=== PATIENT | female | born 1930 | race Caucasian/White ===

== ENCOUNTER 2017-03-14 11:56 | Inpatient (IN) | payer MEDICARE ==
[~2017-03-14] VITALS: Ht 157.5 cm; Wt 60.4 kg
[~2017-03-14 11:56] MED LIST: ASPI81 PO; LEVO100T60 PO; PRIN20TA2 PO; SERT25TA83 PO; TAB-TAB PO; VITA400C70 PO
[2017-03-14 11:58] VITALS: BP 126/71; PULSE 65; RESP 14; TEMP 98.2; O2SAT 98
--- NOTE | 2017-03-14 12:14 | PD ---
Physical Exam Date Seen by Provider: Mar 14, 2017 Time Seen by Provider: 12:12 Narrative 86 year old female here for evaluation of possible fall. Patient cannot remember when or whether she felt. She has been feeling dizzy and lightheaded with standing and sitting. Feeling nauseous and weak. Has pain to the back of the head with bruising. Fall not witnessed. Was seen at urgent care and given nausea meds on tuesday. No other complains. No belly pain. Per family she appears somewhat confused and lethargic. Was seen today by urgent care and sent here for eval. No pain anywhere else. Vitals stable at triage. Awaiting bed placement. Data Data Last Documented VS Vital Signs Date Time Temp Pulse Resp B/P (MAP) Pulse Ox O2 Delivery O2 Flow Rate FiO2 03/14/17 11:58 98.2 65 14 126/71 (89) 98 MDM Medical Record Reviewed: Yes Supervised Visit with DENICE: Casimiro Peña Mar 14, 2017 12:14
--- NOTE | 2017-03-14 13:02 | RADRPT ---
EXAM DATE/TIME: 03/14/2017 12:50 [facility] COMPARISON: No previous studies available for comparison. INDICATIONS : Syncopal episode MEDICAL HISTORY : None. SURGICAL HISTORY : None. ENCOUNTER: Initial ACUITY: 1 day PAIN SCORE: 4/10 LOCATION: Bilateral chest FINDINGS: Cardiomegaly and aortic calcification. Clear lungs. Right shoulder arthroplasty. Stent graft at the l evel of the abdominal aorta. Degenerative changes of the spine. CONCLUSION: No acute disease. Jerson Mayfield MD on March 14, 2017 at 13:00 Board Certified Radiologist. This report was verified electronically.
--- NOTE | 2017-03-14 13:05 | RADRPT ---
EXAM DATE/TIME: 03/14/2017 12:49 [facility] COMPARISON: No previous studies available for comparison. INDICATIONS : Fall, bruising on right side of head. RADIATION DOSE: 56.35 CTDIvol (mGy) MEDICAL HISTORY : Cardiovascular disease. Hypertension. Aneurysm, abdominal. SURGICAL HISTORY : Hysterectomy. ENCOUNTER: Initial ACUITY: 1 day PAIN SCALE: 4/10 LOCATION: Right cranial TECHNIQUE: Multiple contiguous axial images were obtained of the head. Using automated exposure control and adj ustment of the mA and/or kV according to patient size, radiation dose was kept as low as reasonably a chievable to obtain optimal diagnostic quality images. DICOM format image data is available electro nically for review and comparison. FINDINGS: Internal carotid artery and bilateral vertebral artery calcifications are noted. No fractures are see n. The examination demonstrates intraparenchymal hemorrhage in the bilateral inferior frontal regions as well as a hematoma with a small amount of surrounding edema in the left inferior frontal region m easuring 2.2 x 1.5 cm. There is slight mass effect on the frontal horn of the left lateral ventricle. A small amount of subarachnoid hemorrhage is suspected in the left frontal region on the 15. There a re no signs of acute infarction. There is diffuse atrophy. CONCLUSION: Intra-axial and extra-axial hemorrhage identified as above. Atrophy and atherosclerosis. Jerson Mayfield MD on March 14, 2017 at 13:02 Board Certified Radiologist. This report was verified electronically.
[2017-03-14 13:17] VITALS: BP 179/85; PULSE 73; RESP 16; TEMP 97.9; O2SAT 96
[2017-03-14] MEDS ORDERED: LEVO.1 PO (13:26)
[2017-03-14] MEDS ORDERED: LISI-515 PO (13:26)
[2017-03-14] MEDS ORDERED: ZOFR4TAB PO (13:26)
[2017-03-14] MEDS ORDERED: LIPI10TA PO (13:26)
[2017-03-14] MEDS ORDERED: SIMV5TAB3 PO (13:26)
[2017-03-14 13:39] LABS: AUTOMATED NEUTROPHIL # 5.7 TH/MM3 (1.8-7.7); BASOPHIL % 0.3 % (0.0-2.0); EOSINOPHIL % 0.1 % (0.0-4.0); HEMATOCRIT 40.4 % (35.0-46.0); HEMO FLAGS DIFF FINAL; LYMPH % 20.6 % (9.0-44.0); LYMPHOCYTE # 1.7 TH/MM3 (1.0-4.8); MEAN CELL VOLUME 97.1 FL (80.0-100.0); MEAN CORPUSCULAR HEMOGLOBIN 31.2 PG (27.0-34.0); MEAN CORPUSCULAR HGB CONC 32.1 % (32.0-36.0); MONO % 8.1 % (0.0-8.0); NEUT % 70.9 % (16.0-70.0); PLATELET COUNT 195 TH/MM3 (150-450); RED BLOOD COUNT 4.16 MIL/MM3 (4.00-5.30); RED CELL DISTRIBUTION WIDTH 14.7 % (11.6-17.2); WHITE BLOOD COUNT 8.1 TH/MM3 (4.0-11.0)
--- NOTE | 2017-03-14 13:50 | PD ---
HPI Chief Complaint: Fall Time Seen by Provider: 13:20 Travel History International Travel<30 days: No Contact w/Intl Traveler<30days: No Traveled to known affect area: No History of Present Illness HPI 86-year-old female came to the emergency room with history of head injury from a fall that patient does not recall. Patient has been weak and confused for past few days as per her friend who brought her in the emergency room. The friend took the patient to her primary care because this morning when she went to see her she noticed that patient had a large bump on the back of her head and some bruising behind her right ear. Once primary care saw the patient he recommended that she should be taken to the emergency room to get blood test and CAT scan. There were labs ordered by the PA out in triage. CT scan was done and read by the time I went to see the patient. It showed subdural and intraparenchymal hemorrhage. Patient surprisingly is quite awake and alert. She told me that she takes 1 baby aspirin every day. Vital signs are relatively stable. Patient is complaining of some headache on the back as well as some neck pain. As per the friend she has been confused lately. [facility] Past Medical History Narrative Medical List of her past medical, surgical, social and family history is reviewed from the nursing note. Arthritis: Yes (RA) Asthma: No Autoimmune Disease: No Blood Disorders: No Anxiety: Yes Depression: No Heart Rhythm Problems: No Cancer: No Cardiac Catheterization: Yes (AFTER CA, HAD PLASTY X1 VESSEL) Cardiovascular Problems: Yes (CA X 1) High Cholesterol: Yes Chemotherapy: No Chest Pain: Yes Congestive Heart Failure: No COPD: No Cerebrovascular Accident: No Coronary Artery Disease: Yes Diabetes: No Diminished Hearing: No Endocrine: Yes Gastrointestinal Disorders: Yes GERD: No Glaucoma: No Genitourinary: No Headaches: No Hepatitis: No Hiatal Hernia: No Hypertension: Yes Immune Disorder: Yes Implanted Vascular Access Dvce: Yes Kidney Stones: No Medical other: Yes (NEAR DROWNING 11/26) Musculoskeletal: Yes Neurologic: Yes Psychiatric: Yes Reproductive: No Respiratory: No Immunizations Current: Yes Migraines: No Myocardial Infarction: Yes Radiation Therapy: No Renal Failure: No Seizures: No Sickle Cell Disease: No Sleep Apnea: No Thyroid Disease: Yes (hypo) Ulcer: No Menopausal: Yes Tubal Ligation: Yes Past Surgical History Abdominal Surgery: Yes (CHOLECYSTECTOMY, APPY) AICD: No Appendectomy: Yes Arteriovenous Shunt: No Cardiac Surgery: Yes (CARDIAC CATH. WITH ANGIOPLASTY & STENT X 1) Cholecystectomy: Yes Coronary Artery Bypass Graft: No Ear Surgery: No Endocrine Surgery: No Eye Surgery: Yes (GAGE. CATARACT EXTRACTION WITH IOL's) Genitourinary Surgery: No Gynecologic Surgery: Yes (ABD. HYSTERECTOMY; TUBAL LIGATION) Hysterectomy: Yes Insulin Pump: No Joint Replacement: No Oral Surgery: No Pacemaker: No Thoracic Surgery: No Other Surgery: Yes (ANEURYSM AORTA 2009) Family History Family Myocardial Infarction: Yes Social History Alcohol Use: No Tobacco Use: No Substance Use: No Allergies-Medications (Allergen,Severity, Reaction): Coded Allergies: codeine (Unverified Allergy, Severe, PT STATES NO ALLERGY TO CODEINE, 03/14) hydrocodone (Unverified Allergy, Severe, SWELLING OF FINGERS, 03/14/17) Sulfa (Sulfonamide Antibiotics) (Verified Allergy, Unknown, 03/14/17) atenolol (Unverified Adverse Reaction, Severe, PT STATES DRUG LOWERS PULSE TO LOW 12/24/08, 03/18/17) SLOW HEART RATE (NORMAL EFFECT OF THE DRUG - NOT ALLERGY !!!) Comments List of her allergies reviewed from the nursing note. Reported Meds & Prescriptions Reported Meds & Active Scripts Active Reported Zofran (Ondansetron HCl) 4 Mg Tab 4 Mg PO Q8HR PRN Synthroid (Levothyroxine Sodium) 100 Mcg Tab 100 Mcg PO DAILY Lipitor (Atorvastatin Calcium) 10 Mg Tab 10 Mg PO HS Narrative Medication List of her home medications reviewed from the nursing note. Review of Systems Except as stated in HPI: all other systems reviewed are Neg Physical Exam Narrative GENERAL: Awake, alert, elderly, frail SKIN: Focused skin assessment warm/dry. HEAD: Hematoma on the occipital area with old resolving bruise on the right posterior auricular area. EYES: Pupils equal and round. No scleral icterus. No injection or drainage. ENT: No nasal bleeding or discharge. Mucous membranes pink and moist. NECK: Trachea midline. No JVD. CARDIOVASCULAR: Regular rate and rhythm. No murmur appreciated. RESPIRATORY: No accessory muscle use. Clear to auscultation. Breath sounds equal bilaterally. GASTROINTESTINAL: Abdomen soft, non-tender, nondistended. Hepatic and splenic margins not palpable. MUSCULOSKELETAL: No obvious deformities. No clubbing. No cyanosis. No edema. NEUROLOGICAL: Awake and alert. No obvious cranial nerve deficits. Motor grossly within normal limits. Normal speech. PSYCHIATRIC: Appropriate mood and affect; insight and judgment normal. Data Data Last Documented VS Orders Orders Electrocardiogram (03/14/17 12:14) Complete Blood Count With Diff (03/14/17 12:14) Comprehensive Metabolic Panel (03/14/17 12:14) Ckmb (Isoenzyme) Profile (03/14/17 12:14) Troponin I (03/14/17 12:14) Prothrombin Time / Inr (Pt) (03/14/17 12:14) Act Partial Throm Time (Ptt) (03/14/17 12:14) Lipase (03/14/17 12:14) Urinalysis - C+S If Indicated (03/14/17 12:14) Thyroid Stimulating Hormone (03/14/17 12:14) Ct Brain W/O Iv Contrast(Rout) (03/14/17 12:14) Ct Cerv Spine W/O Contrast (03/14/17 ) Chest, Pa & Lat (03/14/17 12:14) ^ Straight Catheter (03/14/17 13:54) CKMB (03/14/17 13:15) CKMB% (03/14/17 13:15) Admit Order (Ed Use Only) (03/14/17 14:17) Labs Laboratory Tests Test 03/14/17 13:15 03/14/17 14:00 White Blood Count 8.1 TH/MM3 Red Blood Count 4.16 MIL/MM3 Hemoglobin 13.0 GM/DL Hematocrit 40.4 % Mean Corpuscular Volume 97.1 FL Mean Corpuscular Hemoglobin 31.2 PG Mean Corpuscular Hemoglobin Concent 32.1 % Red Cell Distribution Width 14.7 % Platelet Count 195 TH/MM3 Mean Platelet Volume 8.8 FL Neutrophils (%) (Auto) 70.9 % Lymphocytes (%) (Auto) 20.6 % Monocytes (%) (Auto) 8.1 % Eosinophils (%) (Auto) 0.1 % Basophils (%) (Auto) 0.3 % Neutrophils # (Auto) 5.7 TH/MM3 Lymphocytes # (Auto) 1.7 TH/MM3 Monocytes # (Auto) 0.7 TH/MM3 Eosinophils # (Auto) 0.0 TH/MM3 Basophils # (Auto) 0.0 TH/MM3 CBC Comment DIFF FINAL Differential Comment Prothrombin Time 10.8 SEC Prothromb Time International Ratio 1.0 RATIO Activated Partial Thromboplast Time 22.6 SEC Blood Urea Nitrogen 30 MG/DL Creatinine 1.15 MG/DL Random Glucose 65 MG/DL Total Protein 7.6 GM/DL Albumin 3.8 GM/DL Calcium Level 9.1 MG/DL Alkaline Phosphatase 76 U/L Aspartate Amino Transf (AST/SGOT) 23 U/L Alanine Aminotransferase (ALT/SGPT) 24 U/L Total Bilirubin 0.6 MG/DL Sodium Level 139 MEQ/L Potassium Level 4.2 MEQ/L Chloride Level 104 MEQ/L Carbon Dioxide Level 25.2 MEQ/L Anion Gap 10 MEQ/L Estimat Glomerular Filtration Rate 45 ML/MIN Total Creatine Kinase 123 U/L Creatine Kinase MB 2.9 NG/ML Troponin I 0.07 NG/ML Lipase 118 U/L Vitamin B12 Level GREATER THAN 2000 PG/ML Thyroid Stimulating Hormone 3rd Gen 1.710 uIU/ML Urine Color YELLOW Urine Turbidity HAZY Urine pH 5.5 Urine Specific [place] 1.026 Urine Protein 30 mg/dL Urine Glucose (UA) NEG mg/dL Urine Ketones 40 mg/dL Urine Occult Blood TRACE Urine Nitrite NEG Urine Bilirubin NEG Urine Urobilinogen 2.0 MG/DL Urine Leukocyte Esterase LARGE Urine RBC 9 /hpf Urine WBC /hpf Urine Squamous Epithelial Cells 8 /hpf Urine Transitional Epithelial Cells 1 /hpf Urine Bacteria MOD /hpf Urine Hyaline Casts 3 /lpf Urine Mucus FEW /lpf Microscopic Urinalysis Comment CULTURE INDICATED MDM Medical Decision Making Medical Screen Exam Complete: Yes Emergency Medical Condition: Yes Medical Record Reviewed: Yes Interpretation(s) Twelve-lead EKG was reviewed by me. Normal sinus rhythm, normal axis, LVH by voltage criteria, nonspecific ST-T wave changes. Heart rate of 73 bpm. Differential Diagnosis Subdural hematoma, intraparenchymal hemorrhage, UTI, left right abnormality Narrative Course 1:58 PM awaiting for the chemistry. CBC and INR are within acceptable limits. Awaiting for the CT spine to be read. A call out for the neurosurgeon based on the CAT scan of the head report. I discussed this with the patient and let her know that she would need to be admitted. Awaiting for the regional sales consultant to call back. 2:09 PM case was discussed with the PA of Dr. Knight from neurosurgery and he is consulted. Procedures EKG Prior to Arrival: No Physician Communication Physician Communication PA of Dr. Knight Diagnosis Primary Impression: Subdural hematoma Additional Impressions: Intraparenchymal hemorrhage of brain Fall Qualified Codes: W19.XXXA - Unspecified fall, initial encounter Head injury Qualified Codes: S09.90XA - Unspecified injury of head, initial encounter Admitting Information Admitting Physician Requests: Admit Scripts Hydrochlorothiazide (Hydrochlorothiazide) 25 Mg Tab 25 MG PO DAILY for blood pressure, #30 TAB 0 Refills Prov: Diane Alejandra 03/18/17 Lisinopril (Lisinopril) 20 Mg Tab 40 MG PO DAILY for blood pressure, #30 TAB 0 Refills Prov: Diane Alejandra 03/18/17 Riccardo Gipson MD Mar 14, 2017 13:50
[2017-03-14 13:51] LABS: APTT (PATIENT) 22.6 SEC (24.3-30.1); PROTHROMBIN TIME - PATIENT 10.8 SEC (9.8-11.6)
[2017-03-14 14:01] LABS: ANION GAP 10 MEQ/L (5-15); AST (GOT) 23 U/L (15-37); BICARBONATE 25.2 MEQ/L (21.0-32.0); BLOOD UREA NITROGEN 30 MG/DL (7-18); CHLORIDE 104 MEQ/L (98-107); GLOMERULAR FILTRATION RATE 45 ML/MIN (>89); POTASSIUM 4.2 MEQ/L (3.5-5.1); SODIUM (NA) 139 MEQ/L (136-145)
[2017-03-14 14:12] LABS: ALKALINE PHOSPHATASE 76 U/L (45-117); ALT (GPT) 24 U/L (10-53); CREATINE KINASE 123 U/L (26-192); TOTAL BILIRUBIN ADULT 0.6 MG/DL (0.2-1.0)
--- NOTE | 2017-03-14 14:13 | RADRPT ---
EXAM DATE/TIME: 03/14/2017 12:51 [facility] COMPARISON: No previous studies available for comparison. INDICATIONS : Fall, bruising on right side of head. RADIATION DOSE: 34.03 CTDIvol (mGy) MEDICAL HISTORY : Cardiovascular disease. Hypertension. Aneurysm, abdominal. SURGICAL HISTORY : Hysterectomy. ENCOUNTER: Initial ACUITY: 1 day PAIN SCALE: 4/10 LOCATION: Right cranial TECHNIQUE: Volumetric scanning of the cervical spine was performed. Multiplanar reconstructions in the sagittal, coronal and oblique axial planes were performed. Using automated exposure control and adjustment o f the mA and/or kV according to patient size, radiation dose was kept as low as reasonably achievable to obtain optimal diagnostic quality images. DICOM format image data is available electronically f or review and comparison. FINDINGS: FINDINGS: Vertebral body heights are maintained. Osseous structures are intact without evidence for acute bony fracture. Dens is intact. There is approximately 3 mm grade 1 anterolisthesis of C4 on C5 and 2 mm an terolisthesis of C7 on T1. Multilevel extensive facet degenerative change. Facets are otherwise align ed. There is a normal C1-2 relationship. There is no significant prevertebral soft tissue hematoma. N o significant cervical adenopathy or gross mass. The thyroid appears unremarkable. Visualized lung ap ices are clear without pneumothorax. CONCLUSION: 1. Grade 1 anterolisthesis of C4 on C5 and C7 on T1, likely degenerative given extensive multilevel f acet arthropathy. Consider flexion-extension views if there is clinical concern regarding ligamentous instability. 2. Otherwise, no acute fracture. Garry Barrios MD on March 14, 2017 at 14:03 Board Certified Radiologist. This report was verified electronically.
[2017-03-14 14:26] LABS: CKMB 2.9 NG/ML (0.5-3.6)
[2017-03-14 14:28] LABS: BACTERIA, URINE MOD /hpf; BLOOD, URINE TRACE (NEG); GLUCOSE,URINE NEG (NEG); HYALINE CAST, URINE 3 /lpf (RARE); KETONE, URINE 40 mg/dL (NEG); MUCUS URINE FEW /lpf (OCC); NITRITE,URINE NEG (NEG); PH, URINE 5.5 (5.0-8.5); SQUAMOUS EPITHELIAL CELL URINE 8 /hpf (0-5); TRANSITIONAL EPI CELLS, URINE 1 /hpf; URINE COLOR YELLOW (YELLW/STRAW)
--- NOTE | 2017-03-14 14:28 | HHI.HP ---
HPI Service Critical Care Medicine Primary Care Physician Monica Napier MD Admission Diagnosis intracranial bleed, fall Diagnosis: (1) TBI (traumatic brain injury) Diagnosis: Principal (2) Fall Diagnosis: Principal (3) Intraparenchymal hemorrhage of brain Diagnosis: Principal (4) UTI (urinary tract infection) Diagnosis: Principal (5) Acute kidney insufficiency Diagnosis: Principal (6) Dehydration Diagnosis: Principal Chief Complaint: s/p fall with ICH UTI Travel History International Travel<30 Days: No Contact w/Intl Traveler <30 Da: No Traveled to Known Affected Are: No History of Present Illness 86-year-old female with history of CAD, PAD, history of AAA repair in 2008, dyslipidemia, hypothyroidism, hypertension who was brought to emergency room with history of fall and head injury. Patient had been weak and confused for past few days as per her friend and completion engineer, who was taking her to PCP when she noticed bruising on the right posterior occipital region. Patient did not recall falling and hitting her head. The PCP noticed that patient had a hematoma on the back of her head and bruising behind her right ear, so patient was sent to emergency department for further evaluation. CT of head in ER showed intraparenchymal hemorrhage in the left inferior frontal region measuring 2.2 x 1.5 cm, with slight surrounding edema and slight mass effect on the frontal horn of the left lateral ventricle. A small amount of subarachnoid hemorrhage is suspected in the left frontal region, also a small intraparenchymal hemorrhage in the right frontal region I evaluated the patient in the emergency department. She does not recall the fall. Denied chest pain or palpitation. Complains of occasional dizziness. UA shows evidence evidence of UTI which is probably the recent patient was confused and had fall. BUN and creatinine consistent with dehydration. 1 L normal saline bolus followed by maintenance ordered and IV Rocephin started Review of Systems ROS Limitations: Other (as per HPI) Past Family Social History Allergies: Coded Allergies: atenolol (Unverified Allergy, Severe, PT STATES DRUG LOWERS PULSE TO LOW , 03/14/17) SLOW HEART RATE (NORMAL EFFECT OF THE DRUG - NOT ALLERGY !!!) codeine (Unverified Allergy, Severe, PT STATES NO ALLERGY TO CODEINE, 03/14) hydrocodone (Unverified Allergy, Severe, SWELLING OF FINGERS, 03/14/17) Sulfa (Sulfonamide Antibiotics) (Verified Allergy, Unknown, 03/14/17) Past Medical History Coronory artery disease AAA endovascular repair 2009 Dyslipidemia Hypothyroidism Hypertension Past Surgical History Endovascular AAA repair n 2009 Bilateral carpal tunnel surgery 2009 Cholecystectomy Appendectomy Cardiac catheterization/ PCI Reported Medications Zofran (Ondansetron HCl) 4 Mg Tab 4 Mg PO Q8HR PRN Synthroid (Levothyroxine Sodium) 100 Mcg Tab 100 Mcg PO DAILY Lisinopril 20 Mg Tab 20 Mg PO DAILY Lipitor (Atorvastatin Calcium) 10 Mg Tab 10 Mg PO HS Simvastatin 5 Mg Tab 5 Mg PO DAILY Aspirin Active Ordered Medications Reviewed Family History No history of syncope or stroke Social History Quit smoking in 1974 Physical Exam Vital Signs Vital Signs Date Time Temp Pulse Resp B/P (MAP) Pulse Ox O2 Delivery O2 Flow Rate FiO2 03/14/17 13:17 97.9 73 16 179/85 (116) 96 Room Air 03/14/17 11:58 98.2 65 14 126/71 (89) 98 Physical Exam GENERAL: Awake, alert, elderly, frail female who is lying in bed SKIN: Skin is warm/dry. HEAD: Old appearing bruise on the behind right ear, small hematoma of the occipital scalp region EYES: Pupils equal and round. No scleral icterus. ENT: No nasal bleeding or discharge. Mucous membranes dry. NECK: Trachea midline. No JVD. No carotid bruit appreciated CARDIOVASCULAR: Regular rate and rhythm. No murmur appreciated. RESPIRATORY: No accessory muscle use. Breath sounds equal bilaterally. GASTROINTESTINAL: Abdomen soft, non-tender, nondistended. Hepatic and splenic margins not palpable. MUSCULOSKELETAL: No obvious deformities. No clubbing. No cyanosis. No edema. NEURO: Patient is alert awake, moves all extremities equally, follows commands. No focal deficits Laboratory Laboratory Tests Test 03/14/17 13:15 03/14/17 14:00 White Blood Count 8.1 Red Blood Count 4.16 Hemoglobin 13.0 Hematocrit 40.4 Mean Corpuscular Volume 97.1 Mean Corpuscular Hemoglobin 31.2 Mean Corpuscular Hemoglobin Concent 32.1 Red Cell Distribution Width 14.7 Platelet Count 195 Mean Platelet Volume 8.8 Neutrophils (%) (Auto) 70.9 Lymphocytes (%) (Auto) 20.6 Monocytes (%) (Auto) 8.1 Eosinophils (%) (Auto) 0.1 Basophils (%) (Auto) 0.3 Neutrophils # (Auto) 5.7 Lymphocytes # (Auto) 1.7 Monocytes # (Auto) 0.7 Eosinophils # (Auto) 0.0 Basophils # (Auto) 0.0 CBC Comment DIFF FINAL Differential Comment Prothrombin Time 10.8 Prothromb Time International Ratio 1.0 Activated Partial Thromboplast Time 22.6 Blood Urea Nitrogen 30 Creatinine 1.15 Random Glucose 65 Total Protein 7.6 Albumin 3.8 Calcium Level 9.1 Alkaline Phosphatase 76 Aspartate Amino Transf (AST/SGOT) 23 Alanine Aminotransferase (ALT/SGPT) 24 Total Bilirubin 0.6 Sodium Level 139 Potassium Level 4.2 Chloride Level 104 Carbon Dioxide Level 25.2 Anion Gap 10 Estimat Glomerular Filtration Rate 45 Total Creatine Kinase 123 Creatine Kinase MB 2.9 Troponin I 0.07 Lipase 118 Thyroid Stimulating Hormone 3rd Gen 1.710 Result Diagram: 03/14/17 1315 03/14/[address] head with L>R frontal intraparenchymal hemorrhage, small left frontal SAH Caprini VTE Risk Assessment Caprini VTE Risk Assessment: Mod/High Risk (score >= 2) VTE Pharm Contraindication: Hemorrhage Caprini Risk Assessment Model Point Value = 1 Point Value = 2 Point Value = 3 Point Value = 5 Age 41-60 Minor surgery BMI > 25 kg/m2 Swollen legs Varicose veins or History of unexplained or recurrent spontaneous Oral contraceptives or hormone replacement Sepsis (< 1 month) Serious lung disease, including pneumonia (< 1 month) Abnormal pulmonary function Acute myocardial infarction Congestive heart failure (< 1 month) History of inflammatory bowel disease Medical patient at bed rest Age 61-74 Arthroscopic surgery Major open surgery (> 45 min) Laparoscopic surgery (> 45 min) Malignancy Confined to bed (> 72 hours) Immobilizing plaster cast Central venous access Age >= 75 History of VTE Family history of VTE Factor V Leiden Prothrombin [id number] Lupus anticoagulant Anticardiolipin antibodies Elevated serum homocysteine Heparin-induced thrombocytopenia Other congenital or acquired thrombophilia Stroke (< 1 month) Elective arthroplasty Hip, pelvis, or leg fracture Acute spinal cord injury (< 1 month) Prophylaxis Regimen Total Risk Factor Score Risk Level Prophylaxis Regimen 0-1 Low Early ambulation 2 Moderate Order ONE of the following: *Sequential Compression Device (SCD) *Heparin 5000 units SQ BID 3-4 Higher Order ONE of the following medications: *Heparin 5000 units SQ TID *Enoxaparin/Lovenox 40 mg SQ daily (WT < 150 kg, CrCl > 30 mL/min) *Enoxaparin/Lovenox 30 mg SQ daily (WT < 150 kg, CrCl > 10-29 mL/min) *Enoxaparin/Lovenox 30 mg SQ BID (WT < 150 kg, CrCl > 30 mL/min) AND/OR *Sequential Compression Device (SCD) 5 or more Highest Order ONE of the following medications: *Heparin 5000 units SQ TID (Preferred with Epidurals) *Enoxaparin/Lovenox 40 mg SQ daily (WT < 150 kg, CrCl > 30 mL/min) *Enoxaparin/Lovenox 30 mg SQ daily (WT < 150 kg, CrCl > 10-29 mL/min) *Enoxaparin/Lovenox 30 mg SQ BID (WT < 150 kg, CrCl > 30 mL/min) AND *Sequential Compression Device (SCD) Assessment and Plan Assessment and Plan NEURO: TBI with bifrontal left more than right intraparenchymal hemorrhage with edema and mild mass effect Small traumatic subarachnoid hemorrhage left frontal region Fall - CT of the head personally reviewed. neurosurgery Dr. Knight consulted - [facility] for seizure prophylaxis at least for 7 days - Keep sodium >145, avoid hypoxia hypercarbia - Target systolic blood pressure less than 150 - Follow-up CT imaging in 24 hours RESP: - Nasal cannula oxygen if needed - Aggressive pulmonary toilet - DuoNeb every 6 hours when necessary, EzPAP, Acapella, IS CV: Hypertension, uncontrolled Coronary artery disease History of AAA repair, peripheral arterial disease - Normal saline IV fluids 100 ml per hour after 1L bolus, 2d echo, carotid Doppler - Hydralazine 20 mg IV every 4 hours when necessary for SBP more than 150 - Continue home medication lisinopril 20 mg daily, atorvastatin 10 mg daily at bedtime GI: - Heart healthy diet. IV Zantac - Bowel regimen : Acute kidney insufficiency Dehydration - Monitor renal function closely. Place Pope catheter. - IV fluid resuscitation as above ID: UTI - Send blood and urine culture. Start Rocephin 1 g IV piggyback every 24 hours HEME: - Monitor CBC, CMP ENDO: - Electrolyte replacement per protocol PROPH: - Bilateral lower extremity SCDs, PONCE. Avoid chemical DVT prophylaxis due to intracranial hemorrhage. IV famotidine LINES: - Utilize peripheral IVs, central line if needed CCT 35 Patient is critically ill at this time due to intracranial hemorrhage. She may decompensate acutely from expansion of ICH and needs very close neuro monitoring. Code Status Full Discussed Condition With Dr. Gipson Problem Qualifiers (1) TBI (traumatic brain injury): Qualified Codes: S06.9X0A - Unspecified intracranial injury without loss of consciousness, initial encounter (2) Fall: Qualified Codes: W19.XXXA - Unspecified fall, initial encounter (3) UTI (urinary tract infection): Katie Urbina MD Mar 14, 2017 14:28
[2017-03-14 14:29] LABS: COMMENT (UR) CULTURE INDICATED; CULTURE IF INDICATED CULTURE INDICATED
[2017-03-14] MEDS ORDERED: MAGNESIUM HYDROXIDE SUSP 30 ML CUP PO PRN (14:30)
[2017-03-14] MEDS ORDERED: SENNOSIDES 8.6 MG TAB PO PRN (14:30)
[2017-03-14] MEDS ORDERED: LACTULOSE SYRUP 20 GM/30 ML CUP PO PRN (14:30)
[2017-03-14] MEDS ORDERED: BISACODYL 10 MG SUPP RECTAL PRN (14:30)
[2017-03-14] MEDS ORDERED: CHLORHEXIDINE GLUCONATE 2 % 1 PACK (2 CLOTHS) TOP PRN (14:30)
[2017-03-14] MEDS ORDERED: MISCELLANEOUS NURSING INFORMATION XX SCH (14:30)
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
[2017-03-14] MEDS ORDERED: SODIUM CHLOR 0.9% 1000 ML INJ 1,000 ML IV SCH (15:15)
[2017-03-14] MEDS ORDERED: SODIUM CHLOR 0.9% 1000 ML INJ 1,000 ML IV ONE (15:15)
[2017-03-14] MEDS ORDERED: cefTRIAXone INJ 1,000 MG in SODIUM CHLORIDE 0.9% INJ 100 ML IV STA (15:26)
[2017-03-14] MEDS ORDERED: cefTRIAXone INJ 1,000 MG in SODIUM CHLORIDE 0.9% INJ 100 ML IV ONE (15:30)
--- NOTE | 2017-03-14 15:39 | RADRPT ---
EXAM DATE/TIME: 03/14/2017 14:38 [place] COMPARISON: No previous studies available for comparison. INDICATIONS : Syncope. MEDICAL HISTORY : Myocardial infarction. Hypercholesterolemia. Hypertension. CAD. Rheumatoid arthritis. SURGICAL HISTORY : Appendectomy. Cholecystectomy. Tubal ligation. Cardiac cath. Hysterectomy. Abdominal aortic aneurysm. ENCOUNTER: Initial ACUITY: 1 day PAIN SCORE: 2/10 LOCATION: Bilateral neck PEAK SYSTOLIC VELOCITIES (cm/sec): ICA/CCA RATIO: Right: 2.3 Left: 1.8 ICA: Right: 102 Left: 164 CCA: Right: 44 Left: 89 ECA: Right: 225 Left: 178 VERTEBRAL: Right: 44 antegrade Left: 74 antegrade Elevated flow velocities and ICA/CCA ratios have been found to correlate with increased degrees of vessel stenosis, calculated as percentage of diameter relative to a normal segment of distal ICA/CCA FINDINGS: Ultrasound of the carotid arteries was performed bilaterally using real-time Doppler and color Dopple r imaging. Examination of the right carotid artery demonstrates moderate fibrous and calcific plaque within the bifurcation. No waveform abnormalities are identified and no spectral broadening is seen. There eleva roman ratios on the right side corresponding to 50-70% stenosis. Examination of the left carotid artery demonstrates moderate fibrous and calcific plaque within the b ulb. No waveform abnormalities are identified and no spectral broadening is seen. There is antegrade flow in both vertebral arteries. CONCLUSION: 1. Potentially significant stenosis on the right 50-70%.CT angiography of the cervicobrachial arch an d carotid arteries is recommended for further evaluation if clinically indicated. Cezar Siddiqui MD on March 14, 2017 at 15:35 Board Certified Radiologist. This report was verified electronically.
[2017-03-14 16:15] VITALS: BP 184/83; PULSE 83; RESP 17; TEMP 98.2; O2SAT 96
[2017-03-14] MEDS: SODIUM CHLOR 0.9% 1000 ML INJ 1,000 ML IV SCH (16:43)
[2017-03-14] MEDS: hydrALAZINE HCL 20 MG/ML VIAL IV PUSH PRN (16:43)
[2017-03-14 18:00] VITALS: PULSE 97
[2017-03-14] MEDS: PRAVASTATIN SOD 10 MG TAB PO SCH (18:03)
[2017-03-14 20:00] VITALS: BP 111/56; PULSE 95; RESP 18; TEMP 98.1; O2SAT 94
[2017-03-14] MEDS: levETIRAcetam INJ 500 MG in SODIUM CHLORIDE 0.9% INJ 100 ML IV SCH (20:33)
[2017-03-14] MEDS: FAMOTIDINE 20 MG/2 ML VIAL IV PUSH SCH (20:34)
[2017-03-14] MEDS: ATORVASTATIN 10 MG TAB PO SCH (20:34)
[2017-03-14] MEDS: DOCUSATE SODIUM 50 MG/SENNA 8.6 MG TAB PO SCH (21:00)
[2017-03-15] VITALS (13 sets, daily range): BP systolic 119–160; BP diastolic 58–72; PULSE 60–80; RESP 16–19; TEMP 97.5–98.6; O2SAT 93–96
[2017-03-15] MEDS: SODIUM CHLOR 0.9% 1000 ML INJ 1,000 ML IV SCH ×3 (00:30→20:35)
[2017-03-15] MEDS: CHLORHEXIDINE GLUCONATE 2 % 1 PACK (2 CLOTHS) TOP SCH (04:00)
[2017-03-15] MEDS: LEVOTHYROXINE SODIUM 100 MCG TAB PO SCH (05:18)
[2017-03-15 05:33] LABS: ALKALINE PHOSPHATASE 59 U/L (45-117); ALT (GPT) 21 U/L (10-53); ANION GAP 10 MEQ/L (5-15); AST (GOT) 21 U/L (15-37); BICARBONATE 24.2 MEQ/L (21.0-32.0); BLOOD UREA NITROGEN 26 MG/DL (7-18); CHLORIDE 110 MEQ/L (98-107); GLOMERULAR FILTRATION RATE 59 ML/MIN (>89); POTASSIUM 3.7 MEQ/L (3.5-5.1); SODIUM (NA) 144 MEQ/L (136-145); TOTAL BILIRUBIN ADULT 0.4 MG/DL (0.2-1.0)
[2017-03-15 05:36] LABS: AUTOMATED NEUTROPHIL # 4.2 TH/MM3 (1.8-7.7); BASOPHIL % 0.5 % (0.0-2.0); EOSINOPHIL # 0.1 TH/MM3 (0-0.4); EOSINOPHIL % 1.2 % (0.0-4.0); HEMATOCRIT 33.2 % (35.0-46.0); HEMO FLAGS DIFF FINAL; LYMPH % 23.5 % (9.0-44.0); LYMPHOCYTE # 1.5 TH/MM3 (1.0-4.8); MEAN CELL VOLUME 96.4 FL (80.0-100.0); MEAN CORPUSCULAR HGB CONC 33.2 % (32.0-36.0); MONO % 11.7 % (0.0-8.0); NEUT % 63.1 % (16.0-70.0); PLATELET COUNT 161 TH/MM3 (150-450); RED BLOOD COUNT 3.44 MIL/MM3 (4.00-5.30); RED CELL DISTRIBUTION WIDTH 14.4 % (11.6-17.2); WHITE BLOOD COUNT 6.6 TH/MM3 (4.0-11.0)
[2017-03-15] MEDS ORDERED: LISINOPRIL 20 MG TAB PO SCH (09:00)
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
[2017-03-15] MEDS: levETIRAcetam INJ 500 MG in SODIUM CHLORIDE 0.9% INJ 100 ML IV SCH ×2 (09:26→20:34)
[2017-03-15] MEDS: PRAVASTATIN SOD 10 MG TAB PO SCH (09:27)
[2017-03-15] MEDS: FAMOTIDINE 20 MG/2 ML VIAL IV PUSH SCH ×2 (09:27→20:34)
[2017-03-15] MEDS: DOCUSATE SODIUM 50 MG/SENNA 8.6 MG TAB PO SCH ×2 (09:27→20:34)
[2017-03-15] MEDS ORDERED: IOHEXOL 350 MG/ML 10 ML VIAL (for RAD DIAG) IVCONTRAST ONE (09:57)
[2017-03-15] MEDS ORDERED: INFLUENZA VIRUS VACCINE (QUADRIVALENT) 0.5 ML SYR IM ONE (10:00)
--- NOTE | 2017-03-15 10:06 | RADRPT ---
EXAM DATE/TIME: 03/15/2017 09:46 [facility] COMPARISON: CT BRAIN W/O CONTRAST, March 14, 2017, 12:49. CT CERVICAL SPINE W/O CONTRAST, March 14, 2017 , 12:51. INDICATIONS : Intracerebral hemorrhage. RADIATION DOSE: 56.35 CTDIvol (mGy) MEDICAL HISTORY : Myocardial infarction. Aneurysm, abdominal. SURGICAL HISTORY : Hysterectomy. Tubal ligation.Coronary artery stent. ENCOUNTER: Subsequent ACUITY: 2 days PAIN SCALE: 0/10 LOCATION: cranial TECHNIQUE: Multiple contiguous axial images were obtained of the head. Using automated exposure control and adj ustment of the mA and/or kV according to patient size, radiation dose was kept as low as reasonably a chievable to obtain optimal diagnostic quality images. DICOM format image data is available electro nically for review and comparison. FINDINGS: The examination demonstrates focal areas of intraparenchymal contusion involving the orbital frontal portion of low frontal lobes, the lateral aspect of the left temporal lobe and a small amount of extr a-axial hemorrhage along the more cephalad portion of the left frontal lobe. There is subtle intraven tricular hemorrhage layering in the posterior horn of the left lateral ventricle. The exam is compared to the previous. The hemorrhage within the frontal lobe is stable. The small willian unt of intraventricular hemorrhage is new when compared to the previous. The ventricles are normal in size and configuration. There are no findings to indicate significant ma ss effect. Imaging through the posterior fossa demonstrates a 2 mm area of increased attenuation in the left cer ebellum. I believe this represents a small area of calcification. It is unchanged when compared to pr evious. Followup to exclude hemorrhage would be warranted. The osseous structures of the skull are intact. CONCLUSION: 1. Stable intraparenchymal and extra-axial hemorrhage involving the frontal lobe. 2. Subtle new area of hemorrhage lowering of the posterior horn of the left lateral ventricle. 3. No significant mass effect identified. Aidan Hassan MD on March 15, 2017 at 9:59 Board Certified Radiologist. This report was verified electronically.
--- NOTE | 2017-03-15 11:10 | RADRPT ---
EXAM DATE/TIME: 03/15/2017 09:45 [facility] COMPARISON: CT BRAIN W/O CONTRAST, March 15, 2017, 9:46. CTA CAROTID ARTERIES W 3D RECON, March 15, 2017 , 9:45. INDICATIONS : Fall. Intracranial bleed. IV CONTRAST: 75 cc Omnipaque 350 (iohexol) IV ; Cumulative dose for multiple exams. RADIATION DOSE: 13.82 CTDIvol (mGy) ; Combined studies MEDICAL HISTORY : Myocardial infarction. Aneurysm, abdominal. SURGICAL HISTORY : Hysterectomy. Tubal ligation.Coronary artery stent. ENCOUNTER: Initial ACUITY: 2 days PAIN SCALE: 0/10 LOCATION: cranial TECHNIQUE: Volumetric scanning was performed using a multi-row detector CT scanner. The data was post processed with a variety of visualization algorithms including full volume maximum intensity projection, multi -planar sliding thin slab reformation, curved planar reformation, and surface rendering techniques. Using automated exposure control and adjustment of the mA and/or kV according to patient size, radiat ion dose was kept as low as reasonably achievable to obtain optimal diagnostic quality images. DICO M format image data is available electronically for review and comparison. FINDINGS: There is excellent visualization of the major intracranial arteries out to the second-order branch ve ssels. There is no evidence for aneurysm, vessel truncation or stenosis, and no evidence for vascula r malformation. CONCLUSION: No aneurysm or high-grade stenosis. Jerson Mayfield MD on March 15, 2017 at 11:07 Board Certified Radiologist. This report was verified electronically.
[2017-03-15] MEDS: ACETAMINOPHEN 325 MG TAB PO PRN ×2 (11:18→21:06)
--- NOTE | 2017-03-15 11:26 | HHI.CCPN ---
Subjective Remarks/Hospital Course 86-year-old female with history of CAD, PAD, history of AAA repair in 2008, dyslipidemia, hypothyroidism, hypertension who was brought to emergency room with history of fall and head injury. Patient had been weak and confused for past few days as per her friend and director of digital platforms, who was taking her to PCP when she noticed bruising on the right posterior occipital region. Patient did not recall falling and hitting her head. The PCP noticed that patient had a hematoma on the back of her head and bruising behind her right ear, so patient was sent to emergency department for further evaluation. CT of head in ER showed intraparenchymal hemorrhage in the left inferior frontal region measuring 2.2 x 1.5 cm, with slight surrounding edema and slight mass effect on the frontal horn of the left lateral ventricle. A small amount of subarachnoid hemorrhage is suspected in the left frontal region, also a small intraparenchymal hemorrhage in the right frontal region. I evaluated the patient in the emergency department. She does not recall the fall. Denied chest pain or palpitation. Complains of occasional dizziness. UA shows evidence evidence of UTI which is probably the recent patient was confused and had fall. BUN and creatinine consistent with dehydration. 1 L normal saline bolus followed by maintenance ordered and IV Rocephin started SUBJ 03/16: Stable overnight, BP good control. CT neck pending. No acute or new deficits. CT of the head shows stable parenchymal hemorrhage and septal new intraventricular hemorrhage layering in the posterior horn of the left lateral ventricle Objective Vital Signs Date Time Temp Pulse Resp B/P (MAP) Pulse Ox O2 Delivery O2 Flow Rate FiO2 03/15/17 06:00 60 03/15/17 04:00 98.2 16 124/59 (80) 93 03/14/17 19:00 Room Air Intake and Output 03/15/17 03/15/17 03/16/17 08:00 16:00 00:00 Intake Total 1100 ml 100 ml Output Total 850 ml Balance 250 ml 100 ml Result Diagram: 03/15/1740403/15/17[address] head with L>R frontal intraparenchymal hemorrhage, small left frontal SAH Objective Remarks GENERAL: Awake, alert, elderly, frail female who is lying in bed, no acute distress SKIN: Skin is warm/dry. HEAD: Old bruise on the behind right ear, small hematoma of the occipital scalp region EYES: Pupils equal and round. No scleral icterus. ENT: No nasal bleeding or discharge. Mucous membranes dry. NECK: Trachea midline. No JVD. No carotid bruit appreciated CARDIOVASCULAR: Regular rate and rhythm. No murmur appreciated. RESPIRATORY: No accessory muscle use. Breath sounds equal bilaterally. GASTROINTESTINAL: Abdomen soft, non-tender, nondistended. Hepatic and splenic margins not palpable. MUSCULOSKELETAL: No obvious deformities. No clubbing. No cyanosis. No edema. NEURO: Patient is alert awake, moves all extremities equally, follows commands. 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 Knight following, no surgical intervention or ventricular drain planned unless acute change in clinical status - [facility] for seizure prophylaxis at least for 7 days - Keep sodium >145, avoid hypoxia hypercarbia - Target systolic blood pressure less than 150 - Follow-up CT imaging again in 24 hours RESP: - Nasal cannula oxygen if needed, aggressive pulmonary toilet - DuoNeb every 6 hours when necessary, EzPAP, Acapella, IS CV: Probable 50-70% right carotid stenosis Hypertension, uncontrolled Coronary artery disease History of AAA repair, peripheral arterial disease - CTA of the head normal. CTA neck pending - Normal saline IV fluids 100 ml per hour, 2d echo, carotid Doppler - Hydralazine 20 mg IV every 4 hours when necessary for SBP more than 150 - Continue home medication lisinopril 20 mg daily, atorvastatin 10 mg daily at bedtime GI: - Heart healthy diet. Zantac DC - Bowel regimen : Acute kidney insufficiency Dehydration - Monitor renal function closely. DC Pope catheter. Creat improved - IV fluid resuscitation as above ID: UTI - F/u urine culture. Rocephin 1 g IV piggyback every 24 hours HEME: - Monitor CBC, CMP ENDO: - Electrolyte replacement per protocol PROPH: - Bilateral lower extremity SCDs, PONCE. Avoid chemical DVT prophylaxis due to intracranial hemorrhage. DC famotidine LINES: - Utilize peripheral IVs, central line if needed Level 3 Patient is critically ill at this time due to intracranial hemorrhage. She may decompensate acutely from expansion of ICH and needs very close neuro monitoring. Katie Urbina MD Mar 15, 2017 11:26
--- NOTE | 2017-03-15 12:59 | RADRPT ---
EXAM DATE/TIME: 03/15/2017 09:45 [facility] COMPARISON: No previous studies available for comparison. INDICATIONS : Fall. Intracranial bleed. IV CONTRAST: 75 cc Omnipaque 350 (iohexol) IV ; Cumulative dose for multiple exams. RADIATION DOSE: 13.82 CTDIvol (mGy) ; Combined studies MEDICAL HISTORY : Myocardial infarction. Aneurysm, abdominal. SURGICAL HISTORY : Hysterectomy. Tubal ligation.Coronary artery stent. ENCOUNTER: Initial ACUITY: 2 days PAIN SCALE: 0/10 LOCATION: neck Elevated flow velocities and ICA/CCA ratios have been found to correlate with increased degrees of vessel stenosis, calculated as percentage of diameter relative to a normal segment of distal ICA/CCA. TECHNIQUE: Volumetric scanning was performed using a multirow detector CT scanner. The data was post processed with a variety of visualization algorithms including full-volume maximum intensity projection, multip lanar sliding thin-slab reformation, curved-planar reformation, and surface-rendering techniques. Us ing automated exposure control and adjustment of the mA and/or kV according to patient size, radiatio n dose was kept as low as reasonably achievable to obtain optimal diagnostic quality images. DICOM f ormat image data is available electronically for review and comparison. FINDINGS: AORTIC ARCH: There is a three-vessel origin of the great vessels from the aorta. No evidence of ostial narrowing. RIGHT CAROTID: There is mild calcific plaquing in the right carotid bifurcation without any significant associated s tenotic narrowing. ICA widely patent to the skull base. LEFT CAROTID: There is mild calcific plaquing in the left carotid bifurcation without any significant associated st enotic narrowing. ICA widely patent to the skull base. VERTEBRALS: The vertebral arteries have a symmetric diameter. No stenotic lesions are seen. CONCLUSION: No significant carotid stenosis Carlitos Luo MD on March 15, 2017 at 12:53 Board Certified Radiologist. This report was verified electronically.
[2017-03-15] MEDS: hydrALAZINE HCL 20 MG/ML VIAL IV PUSH PRN ×2 (13:03→22:24)
--- NOTE | 2017-03-15 13:47 | EKG ---
Date Performed: 03/14/2017 Time Performed: 13:36:03 PTAGE: 86 years EKG: Sinus rhythm POSSIBLE LEFT ATRIAL ENLARGEMENT LEFT VENTRICULAR HYPERTROPHY AND ST-T CHANGE ABNORMAL ECG PREVIOUS TRACING : 03/14/2017 13.35 QRS voltage increase from the prior tracing. DOCTOR: Calin Page Interpretating Date/Time 03/16/2017 07:27:03
--- NOTE | 2017-03-15 17:23 | ECHRPT ---
Indication: sob CONCLUSIONS The left ventricular systolic function is normal with an estimated ejection fraction in the range of 55-60%. Normal left ventricular size. Mild mitral valve regurgitation. There is mild tricuspid valve regurgitation. The pulmonary valve is not well visualized. BP: / HR: Rhythm: MEASUREMENTS (Male / Female) Normal Values Technical Quality:Good 2D ECHO LV Diastolic Diameter PLAX 2.6 cm 4.2 - 5.9 / 3.9 - 5.3 cm LV Systolic Diameter PLAX 2.0 cm IVS Diastolic Thickness 2.0 cm 0.6 - 1.0 / 0.6 - 0.9 cm LVPW Diastolic Thickness 1.1 cm 0.6 - 1.0 / 0.6 - 0.9 cm LV Relative Wall Thickness 1.2 RV Internal Dim ED PLAX 2.2 cm M-MODE Aortic Root Diameter MM 3.1 cm LA Systolic Diameter MM 3.2 cm LA Ao Ratio MM 1.0 AV Cusp Separation MM 1.8 cm DOPPLER Mitral E Point Velocity 71.6 cm/s Mitral A Point Velocity 104.0 cm/s Mitral E to A Ratio 0.7 LV E' Lateral Velocity 7.6 cm/s Mitral E to LV E' Lateral Ratio 9.4 LV E' Septal Velocity 7.1 cm/s Mitral E to LV E' Septal Ratio 10.1 FINDINGS LEFT VENTRICLE The left ventricular systolic function is normal with an estimated ejection fraction in the range of 55-60%. Normal left ventricular size. RIGHT VENTRICLE Normal right ventricular size and systolic function. LEFT ATRIUM The left atrial size is normal. RIGHT ATRIUM The right atrial size is normal. ATRIAL SEPTUM Normal atrial septal thickness without atrial level shunting by limited color doppler interrogation. AORTA The aortic root and proximal ascending aorta are normal in size on limited imaging. MITRAL VALVE Structurally normal mitral valve. Mild mitral valve regurgitation. AORTIC VALVE Trileaflet aortic valve. No aortic valve stenosis or regurgitation. TRICUSPID VALVE Structurally normal tricuspid valve. There is mild tricuspid valve regurgitation. PULMONARY VALVE The pulmonary valve is not well visualized. VESSELS The inferior vena cava is normal in size. PERICARDIUM No pericardial effusion. Westley Thorpe MD, FACC (Electronically Signed) Final Date:15 March 2017 17:22
[2017-03-15] MEDS: cefTRIAXone INJ 1,000 MG in SODIUM CHLORIDE 0.9% INJ 100 ML IV SCH (17:33)
[2017-03-15] MEDS: ATORVASTATIN 10 MG TAB PO SCH (20:34)
[2017-03-16] VITALS (17 sets, daily range): BP systolic 124–215; BP diastolic 60–80; PULSE 64–82; RESP 12–17; TEMP 97.8–98.6; O2SAT 94–100
[2017-03-16] MEDS: CHLORHEXIDINE GLUCONATE 2 % 1 PACK (2 CLOTHS) TOP SCH (03:53)
[2017-03-16 04:56] LABS: ALT (GPT) 20 U/L (10-53); ANION GAP 7 MEQ/L (5-15); AST (GOT) 19 U/L (15-37); BICARBONATE 25.7 MEQ/L (21.0-32.0); BLOOD UREA NITROGEN 17 MG/DL (7-18); CHLORIDE 112 MEQ/L (98-107); GLOMERULAR FILTRATION RATE 65 ML/MIN (>89); POTASSIUM 3.9 MEQ/L (3.5-5.1); SODIUM (NA) 145 MEQ/L (136-145)
[2017-03-16 04:58] LABS: ALKALINE PHOSPHATASE 56 U/L (45-117); TOTAL BILIRUBIN ADULT 0.3 MG/DL (0.2-1.0)
[2017-03-16] MEDS: SODIUM CHLOR 0.9% 1000 ML INJ 1,000 ML IV SCH ×2 (05:41→16:47)
[2017-03-16] MEDS: LEVOTHYROXINE SODIUM 100 MCG TAB PO SCH (05:41)
[2017-03-16] MEDS: hydrALAZINE HCL 20 MG/ML VIAL IV PUSH PRN ×4 (06:18→19:06)
[2017-03-16] MEDS: levETIRAcetam INJ 500 MG in SODIUM CHLORIDE 0.9% INJ 100 ML IV SCH ×2 (08:00→21:15)
[2017-03-16] MEDS: DOCUSATE SODIUM 50 MG/SENNA 8.6 MG TAB PO SCH ×2 (08:00→21:15)
[2017-03-16] MEDS: PRAVASTATIN SOD 10 MG TAB PO SCH (08:00)
[2017-03-16] MEDS: ACETAMINOPHEN 325 MG TAB PO PRN ×2 (08:01→17:58)
--- NOTE | 2017-03-16 08:09 | HHI.CCPN ---
Subjective Remarks/Hospital Course 86-year-old female with history of CAD, PAD, history of AAA repair in 2008, dyslipidemia, hypothyroidism, hypertension who was brought to emergency room with history of fall and head injury. Patient had been weak and confused for past few days as per her friend and auto parts salesperson, who was taking her to PCP when she noticed bruising on the right posterior occipital region. Patient did not recall falling and hitting her head. The PCP noticed that patient had a hematoma on the back of her head and bruising behind her right ear, so patient was sent to emergency department for further evaluation. CT of head in ER showed intraparenchymal hemorrhage in the left inferior frontal region measuring 2.2 x 1.5 cm, with slight surrounding edema and slight mass effect on the frontal horn of the left lateral ventricle. A small amount of subarachnoid hemorrhage is suspected in the left frontal region, also a small intraparenchymal hemorrhage in the right frontal region. I evaluated the patient in the emergency department. She does not recall the fall. Denied chest pain or palpitation. Complains of occasional dizziness. UA shows evidence evidence of UTI which is probably the recent patient was confused and had fall. BUN and creatinine consistent with dehydration. 1 L normal saline bolus followed by maintenance ordered and IV Rocephin started SUBJ 03/15: Stable overnight, BP good control. CT neck pending. No acute or new deficits. CT of the head shows stable parenchymal hemorrhage and septal new intraventricular hemorrhage layering in the posterior horn of the left lateral ventricle 03/16: Neurological exam stable overnight. CTA neck no significant carotid stenosis. Patient complains of significant headache. Will get a repeat CT of the head to reevaluate parenchymal and intraventricular hemorrhage. To improve blood pressure control increase lisinopril to 40 mg daily, add hydrochlorothiazide 25 mg daily Objective Vital Signs Date Time Temp Pulse Resp B/P (MAP) Pulse Ox O2 Delivery O2 Flow Rate FiO2 03/16/17 07:00 94 Room Air 03/16/17 06:00 70 03/16/17 04:00 98.2 14 160/70 (100) 03/15/17 20:44 21 Intake and Output 03/16/17 03/16/17 03/17/17 08:00 16:00 00:00 Intake Total 1301 ml Balance 1301 ml Result Diagram: 03/15/17 0405 03/16/[address] head with L>R frontal intraparenchymal hemorrhage, small left frontal SAH Objective Remarks GENERAL: Awake, alert, elderly, frail female who is lying in bed, complaining of moderate to severe headache SKIN: Skin is warm/dry. HEAD: Old bruise on the behind right ear, small hematoma of the occipital scalp region EYES: Pupils equal and round. No scleral icterus. ENT: No nasal bleeding or discharge. Mucous membranes dry. NECK: Trachea midline. No JVD. No carotid bruit appreciated CARDIOVASCULAR: Regular rate and rhythm. No murmur appreciated. RESPIRATORY: No accessory muscle use. Breath sounds equal bilaterally. GASTROINTESTINAL: Abdomen soft, non-tender, nondistended. Hepatic and splenic margins not palpable. MUSCULOSKELETAL: No obvious deformities. No clubbing. No cyanosis. No edema. NEURO: Patient is alert awake, moves all extremities equally, follows commands. No focal deficits. 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 CTA head and neck essentially negative for significant stenosis or aneurysm - Dr. Knight following, no surgical intervention or ventricular drain planned unless acute change in clinical status - [facility] for seizure prophylaxis at least for 7 days - Keep sodium >145, avoid hypoxia hypercarbia - Target systolic blood pressure less than 150 - Follow-up CT imaging again in 24 hours RESP: - Nasal cannula oxygen if needed, aggressive pulmonary toilet - DuoNeb every 6 hours when necessary, EzPAP, Acapella, IS CV: Hypertension, uncontrolled Coronary artery disease History of AAA repair, peripheral arterial disease - CTA of the head normal. CTA neck no significant stenosis - Normal saline IV fluids 100 ml per hour - Hydralazine 20 mg IV every 4 hours when necessary for SBP more than 150 - Continue home medication lisinopril increase to 40 mg daily 03/16/17, atorvastatin 10 mg daily at bedtime - Add HCTZ 25 mg PO daily 03/16/17 GI: - Heart healthy diet. Zantac DC - Bowel regimen : Acute kidney insufficiency -resolved Dehydration - Monitor renal function closely. DC Pope catheter. Creat improved - IV fluid resuscitation as above ID: UTI - F/u urine culture-GNR. Rocephin 1 g IV piggyback every 24 hours HEME: - Monitor CBC, CMP ENDO: - Electrolyte replacement per protocol PROPH: - Bilateral lower extremity SCDs, PONCE. Avoid chemical DVT prophylaxis due to intracranial hemorrhage. DC famotidine LINES: - Utilize peripheral IVs, central line if needed Level 3 Patient is critically ill at this time due to intracranial hemorrhage. She may decompensate acutely from expansion of ICH and needs very close neuro monitoring. Katie Urbina MD Mar 16, 2017 08:09
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
--- NOTE | 2017-03-16 09:45 | RADRPT ---
EXAM DATE/TIME: 03/16/2017 09:30 [place] COMPARISON: CT BRAIN W/O CONTRAST, March 15, 2017, 9:46. INDICATIONS : Cephalgia with decreasing mental status and pupillary change. RADIATION DOSE: 54.48 CTDIvol (mGy) MEDICAL HISTORY : Cardiovascular disease. Aneurysm, abdominal. SURGICAL HISTORY : Hysterectomy. Cardiac stent ENCOUNTER: Initial ACUITY: 1 day PAIN SCALE: 3/10 LOCATION: Bilateral cranial TECHNIQUE: Multiple contiguous axial images were obtained of the head. Using automated exposure control and adj ustment of the mA and/or kV according to patient size, radiation dose was kept as low as reasonably a chievable to obtain optimal diagnostic quality images. DICOM format image data is available electro nically for review and comparison. FINDINGS: CEREBRUM: There is stable left orbital hematoma measuring approximately 2.5 cm in diameter with a second smalle r contusion and subarachnoid hemorrhage in the left frontopolar region. No acute hemorrhage is identi fied. POSTERIOR FOSSA: The cerebellum and brainstem are intact. The 4th ventricle is midline. The cerebellopontine angle i s unremarkable. EXTRACRANIAL: The visualized portion of the orbits is intact. SKULL: The calvaria is intact. No evidence of skull fracture. CONCLUSION: 1. Stable left frontal contusion without evidence of acute hemorrhage Cezar Siddiqui MD on March 16, 2017 at 9:39 Board Certified Radiologist. This report was verified electronically.
[2017-03-16] MEDS: LISINOPRIL 20 MG TAB PO SCH (11:34)
[2017-03-16] MEDS: HYDROCHLOROTHIAZIDE 25 MG TAB PO SCH (11:34)
[2017-03-16] MEDS: metroNIDAZOLE 500 MG TAB PO SCH ×2 (14:40→21:15)
[2017-03-16] MEDS: cefTRIAXone INJ 1,000 MG in SODIUM CHLORIDE 0.9% INJ 100 ML IV SCH (14:41)
[2017-03-16] MEDS: ATORVASTATIN 10 MG TAB PO SCH (21:15)
[2017-03-16] MEDS: ONDANSETRON ODT 4 MG TAB PO PRN (23:35)
[2017-03-17] VITALS (8 sets, daily range): BP systolic 104–174; BP diastolic 53–74; PULSE 54–70; RESP 16–20; TEMP 97–97.9; O2SAT 94–97
[2017-03-17] MEDS: ACETAMINOPHEN 325 MG TAB PO PRN ×2 (01:59→08:41)
[2017-03-17] MEDS: SODIUM CHLOR 0.9% 1000 ML INJ 1,000 ML IV SCH ×2 (02:30→06:39)
[2017-03-17] MEDS: CHLORHEXIDINE GLUCONATE 2 % 1 PACK (2 CLOTHS) TOP SCH (04:00)
[2017-03-17] MEDS: metroNIDAZOLE 500 MG TAB PO SCH ×3 (06:40→22:43)
[2017-03-17] MEDS: LEVOTHYROXINE SODIUM 100 MCG TAB PO SCH (06:40)
[2017-03-17] MEDS: HYDROCHLOROTHIAZIDE 25 MG TAB PO SCH (08:41)
[2017-03-17] MEDS: LISINOPRIL 20 MG TAB PO SCH (08:41)
[2017-03-17] MEDS: PRAVASTATIN SOD 10 MG TAB PO SCH (08:41)
[2017-03-17] MEDS: LABETALOL HCL 200 MG TAB PO SCH ×2 (08:42→13:00)
[2017-03-17] MEDS: levETIRAcetam INJ 500 MG in SODIUM CHLORIDE 0.9% INJ 100 ML IV SCH ×2 (08:42→22:44)
[2017-03-17] MEDS: DOCUSATE SODIUM 50 MG/SENNA 8.6 MG TAB PO SCH ×2 (08:42→21:00)
[2017-03-17 08:53] LABS: AUTOMATED NEUTROPHIL # 3.7 TH/MM3 (1.8-7.7); BASOPHIL % 0.4 % (0.0-2.0); EOSINOPHIL # 0.1 TH/MM3 (0-0.4); EOSINOPHIL % 1.3 % (0.0-4.0); HEMATOCRIT 36.3 % (35.0-46.0); HEMO FLAGS DIFF FINAL; LYMPH % 17.9 % (9.0-44.0); MEAN CELL VOLUME 95.5 FL (80.0-100.0); MEAN CORPUSCULAR HEMOGLOBIN 31.5 PG (27.0-34.0); MONO % 12.6 % (0.0-8.0); NEUT % 67.8 % (16.0-70.0); PLATELET COUNT 170 TH/MM3 (150-450); RED BLOOD COUNT 3.81 MIL/MM3 (4.00-5.30); RED CELL DISTRIBUTION WIDTH 15.1 % (11.6-17.2); WHITE BLOOD COUNT 5.5 TH/MM3 (4.0-11.0)
[2017-03-17 09:17] LABS: ALT (GPT) 20 U/L (10-53); ANION GAP 9 MEQ/L (5-15); AST (GOT) 22 U/L (15-37); BICARBONATE 26.3 MEQ/L (21.0-32.0); BLOOD UREA NITROGEN 10 MG/DL (7-18); CHLORIDE 109 MEQ/L (98-107); GLOMERULAR FILTRATION RATE 70 ML/MIN (>89); POTASSIUM 3.7 MEQ/L (3.5-5.1); SODIUM (NA) 144 MEQ/L (136-145)
[2017-03-17 09:20] LABS: ALKALINE PHOSPHATASE 62 U/L (45-117); TOTAL BILIRUBIN ADULT 0.3 MG/DL (0.2-1.0)
[2017-03-17] MEDS: cefTRIAXone INJ 1,000 MG in SODIUM CHLORIDE 0.9% INJ 100 ML IV SCH (15:00)
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
[2017-03-17] MEDS ORDERED: OMEP20TA PO (18:50)
[2017-03-17] MEDS ORDERED: ALEV220T14 PO (18:50)
[2017-03-17] MEDS ORDERED: NITR0.4S SL (18:50)
[2017-03-17] MEDS ORDERED: MULTTAB (18:50)
[2017-03-17] MEDS ORDERED: NIFE60TA58 PO (18:50)
[2017-03-17] MEDS ORDERED: SIMV40TA PO (18:50)
[2017-03-17] MEDS ORDERED: VITA500T4 PO (18:50)
[2017-03-17] MEDS ORDERED: CLON0.5T PO (18:50)
[2017-03-17] MEDS ORDERED: ALEN1TAB48 PO (18:50)
[2017-03-17] MEDS ORDERED: VITA2000 PO (18:50)
[2017-03-17] MEDS ORDERED: FISHCAP4 PO (18:50)
[2017-03-17] MEDS ORDERED: ENALAPRILAT 1.25 MG/ML VIAL IV PRN (19:00)
[2017-03-17] MEDS: NIFEdipine 60 MG SUSTAINED RELEASE TAB PO SCH (22:43)
[2017-03-17] MEDS: ATORVASTATIN 10 MG TAB PO SCH (22:43)
[2017-03-18] VITALS (10 sets, daily range): BP systolic 121–163; BP diastolic 57–74; PULSE 50–83; RESP 16–18; TEMP 97.7–98.7; O2SAT 92–95
[2017-03-18] MEDS: CHLORHEXIDINE GLUCONATE 2 % 1 PACK (2 CLOTHS) TOP SCH (04:00)
[2017-03-18] MEDS: LEVOTHYROXINE SODIUM 100 MCG TAB PO SCH (05:18)
[2017-03-18] MEDS: metroNIDAZOLE 500 MG TAB PO SCH ×3 (05:18→22:23)
[2017-03-18] MEDS ORDERED: LISI-515 PO (08:32)
[2017-03-18] MEDS ORDERED: HYDR25TA5 PO (08:32)
--- NOTE | 2017-03-18 08:35 | PD.CONS ---
HPI Service CV Consult Requested By v-tach Primary Care Physician Monica Napier MD History of Present Illness Here with CAD s/p AR (1993) s/p PCI RCA (patent on [facility] 2009), HTN, hyperlipidemia and aortic aneurysm s/p endovascular repair for intracranial hemorrhage. We have been asked to see her for two episodes of NSVT. She denies any chest pain, shortness of breath or palpitations. She states she cannot take BB secondary to bradycardia when taking them in the past. She complains of headache. Review of Systems Consitutional: DENIES: Fatigue, Fever, Chills, Weight gain, Weight loss Eyes: DENIES: Amaurosis Fugax, Change in vision HEENT: DENIES: Lightheadedness, Change in hearing Respiratory: DENIES: See HPI, Cough, Snoring, Shortness of breath, Wheezing, Sputum production Cardiovascular: DENIES: See HPI, Chest pain, Palpitations, Syncope, Tachycardia Gastrointestinal: DENIES: Nausea, Vomiting, Change in bowel habits, Reflux, Bloody stools, Melena Genitourinary: DENIES: Urinary incontinence, Difficulty voiding Neurologic: DENIES: Tingling or numbness, Memory problems, Poor Balance, Stroke symptoms Psychiatric: DENIES: Anxiety, Depression, Sleep disturbances Hematologic: DENIES: Bruising tendencies, Bleeding tendencies Endocrine: DENIES: Weight gain, Weight loss, Thyroid disease Past Family Social History Allergies: Coded Allergies: atenolol (Unverified Allergy, Severe, PT STATES DRUG LOWERS PULSE TO LOW , 03/14/17) SLOW HEART RATE (NORMAL EFFECT OF THE DRUG - NOT ALLERGY !!!) codeine (Unverified Allergy, Severe, PT STATES NO ALLERGY TO CODEINE, 03/14) hydrocodone (Unverified Allergy, Severe, SWELLING OF FINGERS, 03/14/17) Sulfa (Sulfonamide Antibiotics) (Verified Allergy, Unknown, 03/14/17) Past Medical History see HPI anxiety carotid bruit CKD stage 3 GERD hypothyroidism Past Surgical History see HPI appendectomy cataract surgery cholecystectomy colonoscopy EGD KASIA BSO Reported Medications Reported Meds & Active Scripts Active Reported Alendronate (Alendronate Sodium) 70 Mg Tab 70 Mg PO Q7D Aleve Arthritis (Naproxen Sodium) 220 Mg Tab 220 Mg PO BID Centrum Specialist Heart (Multiple Vitamins W/ Minerals) 3 Mg-200 Mcg-400 Mg Tab Clonazepam 0.5 Mg Tab 0.5 Mg PO BID Fish Oil + D3 (Fish Oil-Cholecalciferol) 1,200-1,000 Mg-Unit Cap 1 Cap PO DAILY Nifedipine ER 24 HR (Nifedipine) 60 Mg Tab 60 Mg PO DAILY Nitrostat SL (Nitroglycerin) 0.4 Mg Subl 0.4 Mg SL DIRECTED PRN 1 tablet under the tongue as needed for chest pain. Repeat every 5 minutes for a total of 3 DOSES or call 911 if NO relief. Omeprazole 20 Mg Tab 20 Mg PO DAILY Simvastatin 40 Mg Tab 40 Mg PO HS Vitamin D3 (Cholecalciferol) 2,000 Unit Cap 2,000 Units PO DAILY Vitamin B-12 (Cyanocobalamin) 500 Mcg Tab 500 Mcg PO DAILY Zofran (Ondansetron HCl) 4 Mg Tab 4 Mg PO Q8HR PRN Synthroid (Levothyroxine Sodium) 100 Mcg Tab 100 Mcg PO DAILY Lisinopril 20 Mg Tab 20 Mg PO DAILY Lipitor (Atorvastatin Calcium) 10 Mg Tab 10 Mg PO HS Active Ordered Medications Current Medications Medications (Trade) Dose Ordered Sig/Jose Route Start Time Stop Time Status Last Admin (Tylenol) 650 mg Q6H PRN PO 03/14/17 14:30 03/17/17 08:41 Miscellaneous Information 1 Q361D XX 03/14/17 14:30 (Chlorhexidine 2% Cloth) 3 pack Taper DAILY@04 TOP 03/15/17 04:00 03/11/18 03:59 03/16/17 03:53 (Chlorhexidine 2% Cloth) 3 pack UNSCH PRN TOP 03/14/17 14:30 (Sonya-Colace) 1 tab BID PO 03/14/17 21:00 03/17/17 08:42 (Milk Of Magnesia Liq) 30 ml Q12H PRN PO 03/14/17 14:30 03/17/17 12:15 (Senokot) 17.2 mg Q12H PRN PO 03/14/17 14:30 03/17/17 13:26 (Dulcolax Supp) 10 mg DAILY PRN RECTAL 03/14/17 14:30 (Lactulose Liq) 30 ml DAILY PRN PO 03/14/17 14:30 (Lipitor) 10 mg HS PO 03/14/17 21:00 03/17/17 22:43 (Synthroid) 100 mcg DAILY@0600 PO 03/15/17 06:00 03/18/17 05:18 (Zofran Odt) 4 mg Q8H PRN PO 03/14/17 15:30 03/16/17 23:35 (Pravachol) 10 mg DAILY PO 03/14/17 15:30 03/17/17 08:41 (Apresoline Inj) 20 mg Q4H PRN IV PUSH 03/14/17 15:15 03/16/17 19:06 Ceftriaxone Sodium 1000 mg/ Sodium Chloride 100 ml @ 200 mls/hr Q24H IV 03/15/17 15:00 03/17/17 15:00 Levetriacetam 500 mg/Sodium Chloride 105 ml @ 420 mls/hr Q12HR IV 03/14/17 21:00 03/17/17 22:44 (Prinivil) 40 mg DAILY PO 03/16/17 09:00 03/17/17 08:41 (Hydrodiuril) 25 mg DAILY PO 03/16/17 09:00 03/17/17 08:41 (Flagyl) 500 mg Q8HR PO 03/16/17 14:00 03/18/17 05:18 (Vasotec Inj) 1.25 mg Q6H PRN IV 03/17/17 19:00 (Procardia Xl) 60 mg Q12HR PO 03/17/17 21:00 03/17/17 22:43 Family History noncontributory Social History never smoker denies EtOH denies substance abuse Physical Exam Vital Signs Vital Signs Date Time Temp Pulse Resp B/P (MAP) Pulse Ox O2 Delivery O2 Flow Rate FiO2 03/18/17 08:05 98.0 69 17 143/65 (91) 93 03/18/17 06:07 98.7 65 16 144/66 (92) 95 03/18/17 05:56 83 03/18/17 04:05 97.7 67 18 151/69 (96) 95 03/18/17 01:23 97.7 63 18 148/62 (90) 92 03/17/17 22:45 66 153/65 (94) 03/17/17 20:31 97.7 62 18 156/69 (98) 96 03/17/17 20:04 58 03/17/17 16:32 97.8 62 17 129/60 (83) 94 03/17/17 12:48 97.0 54 16 104/53 (70) 97 03/17/17 09:05 97.7 70 16 174/73 (106) 95 Physical Exam GENERAL: Well-nourished, well-developed patient in no apparent distress. NECK: No JVD. No carotid bruit. CARDIOVASCULAR: Regular rate and rhythm. S1/S2 no murmur, rub, or gallop. RESPIRATORY: No accessory muscle use. Clear to auscultation. Breath sounds equal bilaterally. GASTROINTESTINAL: Abdomen soft, non-tender, nondistended. MUSCULOSKELETAL: Extremities without clubbing, cyanosis, or edema. Laboratory Date/Time Source Procedure Growth Status 03/14/17 14:00 Urine Clean Catch Urine Culture - Final Escherichia Coli Gardnerella Vaginalis Complete Result Diagram: 03/17/17 0803/17/17 08 Assessment and Plan Problem List: (1) NSVT (nonsustained ventricular tachycardia) ICD Codes: I47.2 - Ventricular tachycardia (2) Intraparenchymal hemorrhage of brain ICD Codes: I61.9 - Nontraumatic intracerebral hemorrhage, unspecified Status: Acute Assessment and Plan NSVT - troponin elevation is demand mediated. Will start metoprolol 25 mg BID, She does not have an allergy to atenolol but a medication reaction. We will keep her in the hospital over the weekend to monitor. We will entertain medical management secondary to ICH and she would not be able to take anticoagulants if mechanical intervention was warranted. Will follow Matthieu Chowdhury Mar 18, 2017 08:35
--- NOTE | 2017-03-18 08:36 | HHI.DS ---
Discharge Summary Admission Date Mar 14, 2017 at 14:19 Discharge Date: Mar 18, 2017 Admitting Diagnosis intracranial bleed, fall (1) TBI (traumatic brain injury) Diagnosis: Principal ICD Codes: S06.9X9A - Unspecified intracranial injury with loss of consciousness of unspecified duration, initial encounter (2) Fall Diagnosis: Principal ICD Codes: W19.XXXA - Unspecified fall, initial encounter Status: Acute (3) Intraparenchymal hemorrhage of brain Diagnosis: Principal ICD Codes: I61.9 - Nontraumatic intracerebral hemorrhage, unspecified Status: Acute (4) UTI (urinary tract infection) Diagnosis: Principal ICD Codes: N39.0 - Urinary tract infection, site not specified (5) Acute kidney insufficiency Diagnosis: Principal ICD Codes: N28.9 - Disorder of kidney and ureter, unspecified (6) Dehydration Diagnosis: Principal ICD Codes: E86.0 - Dehydration Consultants Dr. Eugene Urbina Procedures none Brief History This is an 86-year-old female with history of CAD, PAD, history of AAA repair in 2008, dyslipidemia, hypothyroidism, hypertension who was brought to emergency room on 03/14/17 with history of fall and head injury. Patient had been weak and confused for past few days as per her friend and petroleum products sales representative, who was taking her to PCP when she noticed bruising on the right posterior occipital region. Patient did not recall falling and hitting her head. The PCP noticed that patient had a hematoma on the back of her head and bruising behind her right ear, so patient was sent to emergency department for further evaluation. CT of head in ER showed intraparenchymal hemorrhage in the left inferior frontal region measuring 2.2 x 1.5 cm, with slight surrounding edema and slight mass effect on the frontal horn of the left lateral ventricle. A small amount of subarachnoid hemorrhage is suspected in the left frontal region , also a small intraparenchymal hemorrhage in the right frontal region. I evaluated the patient in the emergency department. She does not recall the fall. Denied chest pain or palpitation. Complains of occasional dizziness. UA shows evidence evidence of UTI which is probably the recent patient was confused and had fall. BUN and creatinine consistent with dehydration. 1 L normal saline bolus followed by maintenance ordered and IV Rocephin started CBC/BMP: 03/17/17 0806 03/17/17 0806 Significant Findings Laboratory Tests Test 03/16/17 03:44 03/17/17 08:06 Random Glucose 108 MG/DL (74-106) Total Protein 5.9 GM/DL (6.4-8.2) 6.0 GM/DL (6.4-8.2) Albumin 2.8 GM/DL (3.4-5.0) 3.0 GM/DL (3.4-5.0) Calcium Level 8.4 MG/DL (8.5-10.1) Chloride Level 112 MEQ/L (98-107) 109 MEQ/L (98-107) Estimat Glomerular Filtration Rate 65 ML/MIN (>89) 70 ML/MIN (>89) Red Blood Count 3.81 MIL/MM3 (4.00-5.30) Monocytes (%) (Auto) 12.6 % (0.0-8.0) Imaging Last Impressions Head CT 03/16/17 09 Signed Impressions: Service Date/Time: Thursday, March 16, 2017 09:30 - CONCLUSION: 1. Stable left frontal contusion without evidence of acute hemorrhage Cezar Siddiqui MD Head CTA 03/15/17 0753 Signed Impressions: Service Date/Time: Wednesday, March 15, 2017 09:45 - CONCLUSION: No aneurysm or high-grade stenosis. Jerson Mayfield MD Neck CTA 03/15/17 0000 Signed Impressions: Service Date/Time: Wednesday, March 15, 2017 09:45 - CONCLUSION: No significant carotid stenosis Carlitos Luo MD Chest X-Ray 03/14/17 1214 Signed Impressions: Service Date/Time: Tuesday, March 14, 2017 12:50 - CONCLUSION: No acute disease. Jerson Mayfield MD Cervical Spine CT 03/14/17 0000 Signed Impressions: Service Date/Time: Tuesday, March 14, 2017 12:51 - CONCLUSION: 1. Grade 1 anterolisthesis of C4 on C5 and C7 on T1, likely degenerative given extensive multilevel facet arthropathy. Consider flexion-extension views if there is clinical concern regarding ligamentous instability. 2. Otherwise, no acute fracture. Garry Barrios MD Carotid Artery Ultrasound 03/14/17 0000 Signed Impressions: Service Date/Time: Tuesday, March 14, 2017 14:38 - CONCLUSION: 1. Potentially significant stenosis on the right 50-70%%.CT angiography of the cervicobrachial arch and carotid arteries is recommended for further evaluation if clinically indicated. Cezar Siddiqui MD PE at Discharge GENERAL: Awake, alert, elderly, frail female who is lying in bed HEAD: Old bruise on the behind right ear, small hematoma of the occipital scalp region EYES: EOMI. No scleral icterus. NECK: Trachea midline. No JVD. No carotid bruit appreciated CARDIOVASCULAR: Regular rate and rhythm. No murmur appreciated. RESPIRATORY: Clear through out. Breath sounds equal bilaterally. GASTROINTESTINAL: Abdomen soft, non-tender, nondistended. Hepatic and splenic margins not palpable. MUSCULOSKELETAL: No obvious deformities. No clubbing. No cyanosis. No edema. NEURO: Patient is alert awake, moves all extremities equally, follows commands. No focal deficits. Hospital Course TBI with bifrontal left more than right intraparenchymal hemorrhage with edema and mild mass effect Small traumatic subarachnoid hemorrhage left frontal region New mild IVH Fall Head ache - CT of the head follow up 03/15 shows stable intraparenchymal hemorrhage, new layering intraventricular hemorrhage in the posterior horn of left lateral ventricle - Repeat CT head due to worsening headache. CTA head and neck essentially negative for significant stenosis or aneurysm - Dr. Knight following, recommends no surgical intervention or ventricular drain planned unless acute change in clinical status- and has cleared for DC to SNF - [facility] for seizure prophylaxis at least for 7 days - Keep sodium >145, avoid hypoxia hypercarbia - Target systolic blood pressure less than 150 - PT evaluated the patient is recommending rehab at time of DC - plan to DC in 1-2 days once BP better controlled Hypertension, uncontrolled - DC IV fluids patient taking PO intake - DC Labetolol 200 mg PO QID due to bradycardia - Start Nifedipine 60 mg PO BID - Continue home medication lisinopril increase to 40 mg - continue HCTZ 25 mg PO daily Acute kidney insufficiency -resolved Dehydration - Monitor renal function closely. DC Pope catheter. Creat improved - DC IV fluids - encourage PO fluid intake UTI - urine culture reveals E Coli and Gardnerella Vaginalis completed Rocephin 1 g IV every 24 hours x 4 days and Flagyl 500 mg PO Q8H x 2 days DVT prophylaxis SCDs. Avoid chemical DVT prophylaxis due to intracranial hemorrhage. Pt Condition on Discharge: Stable Discharge Disposition: Discharge to SNF Discharge Instructions DIET: Follow Instructions for: Heart Healthy Diet Activities you can perform: Regular-No Restrictions Follow up Referrals: PCP Follow-up - [address] Napier New Medications: Hydrochlorothiazide (Hydrochlorothiazide) 25 Mg Tab 25 MG PO DAILY for blood pressure, #30 TAB 0 Refills Lisinopril (Lisinopril) 20 Mg Tab 40 MG PO DAILY for blood pressure, #30 TAB 0 Refills Continued Medications: Alendronate (Alendronate) 70 Mg Tab 70 MG PO Q7D for Osteporosis Treatment, #4 TAB 0 Refills Atorvastatin (Lipitor) 10 Mg Tab 10 MG PO HS for Cholesterol Management, #30 TAB 0 Refills Cholecalciferol (Vitamin D3) 2,000 Unit Cap 2000 UNITS PO DAILY for Nutritional Supplement, #56 CAP 0 Refills Clonazepam (Clonazepam) 0.5 Mg Tab 0.5 MG PO BID, #60 TAB 0 Refills Cyanocobalamin (Vitamin B-12) 500 Mcg Tab 500 MCG PO DAILY for Nutritional Supplement, #1 BOTTLE 0 Refills Fish Oil-Cholecalciferol (Fish Oil + D3) 1,200-1,000 Mg-Unit Cap 1 CAP PO DAILY for Nutritional Supplement, #30 CAP 0 Refills Levothyroxine (Synthroid) 100 Mcg Tab 100 MCG PO DAILY for Thyroid, #30 TAB 0 Refills Multiple Vitamins W/ Minerals (Centrum Specialist Heart) 3 Mg-200 Mcg-400 Mg Tab Nifedipine ER 24 HR (Nifedipine ER 24 HR) 60 Mg Tab 60 MG PO DAILY, #30 TAB 0 Refills Nitroglycerin SL (Nitrostat SL) 0.4 Mg Subl 0.4 MG SL DIRECTED PRN for CHEST PAIN, #100 TAB.SL 0 Refills 1 tablet under the tongue as needed for chest pain. Repeat every 5 minutes for a total of 3 DOSES or call 911 if NO relief. Omeprazole (Omeprazole) 20 Mg Tab 20 MG PO DAILY, #30 TAB 0 Refills Ondansetron (Zofran) 4 Mg Tab 4 MG PO Q8HR PRN for NAUSEA OR VOMITING, TAB 0 Refills Simvastatin (Simvastatin) 40 Mg Tab 40 MG PO HS for Cholesterol Management, #30 TAB 0 Refills Discontinued Medications: Lisinopril (Lisinopril) 20 Mg Tab 20 MG PO DAILY, #30 TAB 0 Refills Naproxen Sodium (Aleve Arthritis) 220 Mg Tab 220 MG PO BID, TAB Additional Information Patient examined. Assessment and plan formulated with Diane Alejandra PA-C. I agree with the above. Diane Alejandra Mar 18, 2017 08:36 Yazan Camarillo DO Mar 20, 2017 23:46
--- NOTE | 2017-03-18 08:39 | HHI.DCPOC ---
Discharge Care Plan Diagnosis: (1) Fall (2) Subdural hematoma (3) Intraparenchymal hemorrhage of brain (4) TBI (traumatic brain injury) (5) Acute kidney insufficiency (6) Dehydration (7) UTI (urinary tract infection) Goals to Promote Your Health * To prevent worsening of your condition and complications * To maintain your health at the optimal level Directions to Meet Your Goals Take your medications as prescribed Follow your dietary instruction Follow activity as directed Keep your appointments as scheduled Take your immunizations and boosters as scheduled If your symptoms worsen call your PCP, if no PCP go to Urgent Care Center or Emergency Room Smoking is Dangerous to Your Health. Avoid second hand smoke Call the 24-hour hour crisis hotline for domestic abuse at Diane Alejandra Mar 18, 2017 08:39 Yazan Camarillo DO Mar 20, 2017 23:47
[2017-03-18] MEDS: levETIRAcetam INJ 500 MG in SODIUM CHLORIDE 0.9% INJ 100 ML IV SCH ×2 (09:00→20:02)
[2017-03-18] MEDS: METOPROLOL TARTRATE 25 MG TAB PO SCH ×2 (09:00→20:02)
[2017-03-18] MEDS: HYDROCHLOROTHIAZIDE 25 MG TAB PO SCH (09:00)
[2017-03-18] MEDS: NIFEdipine 60 MG SUSTAINED RELEASE TAB PO SCH ×2 (11:48→20:02)
[2017-03-18] MEDS: DOCUSATE SODIUM 50 MG/SENNA 8.6 MG TAB PO SCH ×2 (11:49→20:02)
[2017-03-18] MEDS: ACETAMINOPHEN 325 MG TAB PO PRN ×2 (11:49→20:02)
[2017-03-18] MEDS: LISINOPRIL 20 MG TAB PO SCH (11:50)
[2017-03-18] MEDS: cefTRIAXone INJ 1,000 MG in SODIUM CHLORIDE 0.9% INJ 100 ML IV SCH (15:21)
--- NOTE | 2017-03-18 15:59 | HHI.PR ---
Subjective Remarks Patient A&O Offers no speific complaints at this time Patient did have 12 beat run of NSVT- per patient and RN this was asymptomatic Objective Vitals Vital Signs Date Time Temp Pulse Resp B/P (MAP) Pulse Ox O2 Delivery O2 Flow Rate FiO2 03/18/17 11:46 98.7 67 18 163/74 (103) 94 03/18/17 08:05 98.0 69 17 143/65 (91) 93 03/18/17 06:07 98.7 65 16 144/66 (92) 95 03/18/17 05:56 83 03/18/17 04:05 97.7 67 18 151/69 (96) 95 03/18/17 01:23 97.7 63 18 148/62 (90) 92 03/17/17 22:45 66 153/65 (94) 03/17/17 20:31 97.7 62 18 156/69 (98) 96 03/17/17 20:04 58 03/17/17 16:32 97.8 62 17 129/60 (83) 94 03/18/17 03/18/17 03/19/17 15:00 23:00 07:00 Intake Total 120 ml Balance 120 ml Intake Oral 120 ml # Voids 2 Result Diagram: 03/17/17 0803/17/17 08 Other Results Laboratory Tests Test 03/16/17 03:44 03/17/17 08:06 Blood Urea Nitrogen 17 MG/DL 10 MG/DL Creatinine 0.83 MG/DL 0.78 MG/DL Random Glucose 108 MG/DL 92 MG/DL Total Protein 5.9 GM/DL 6.0 GM/DL Albumin 2.8 GM/DL 3.0 GM/DL Calcium Level 8.4 MG/DL 8.6 MG/DL Alkaline Phosphatase 56 U/L 62 U/L Aspartate Amino Transf (AST/SGOT) 19 U/L 22 U/L Alanine Aminotransferase (ALT/SGPT) 20 U/L 20 U/L Total Bilirubin 0.3 MG/DL 0.3 MG/DL Sodium Level 145 MEQ/L 144 MEQ/L Potassium Level 3.9 MEQ/L 3.7 MEQ/L Chloride Level 112 MEQ/L 109 MEQ/L Carbon Dioxide Level 25.7 MEQ/L 26.3 MEQ/L Anion Gap 7 MEQ/L 9 MEQ/L Estimat Glomerular Filtration Rate 65 ML/MIN 70 ML/MIN White Blood Count 5.5 TH/MM3 Red Blood Count 3.81 MIL/MM3 Hemoglobin 12.0 GM/DL Hematocrit 36.3 % Mean Corpuscular Volume 95.5 FL Mean Corpuscular Hemoglobin 31.5 PG Mean Corpuscular Hemoglobin Concent 33.0 % Red Cell Distribution Width 15.1 % Platelet Count 170 TH/MM3 Mean Platelet Volume 9.0 FL Neutrophils (%) (Auto) 67.8 % Lymphocytes (%) (Auto) 17.9 % Monocytes (%) (Auto) 12.6 % Eosinophils (%) (Auto) 1.3 % Basophils (%) (Auto) 0.4 % Neutrophils # (Auto) 3.7 TH/MM3 Lymphocytes # (Auto) 1.0 TH/MM3 Monocytes # (Auto) 0.7 TH/MM3 Eosinophils # (Auto) 0.1 TH/MM3 Basophils # (Auto) 0.0 TH/MM3 CBC Comment DIFF FINAL Differential Comment Imaging Last Impressions Head CT 03/16/17 0927 Signed Impressions: Service Date/Time: Thursday, March 16, 2017 09:30 - CONCLUSION: 1. Stable left frontal contusion without evidence of acute hemorrhage Cezar Siddiqui MD Head CTA 03/15/17 0753 Signed Impressions: Service Date/Time: Wednesday, March 15, 2017 09:45 - CONCLUSION: No aneurysm or high-grade stenosis. Jerson Mayfield MD Neck CTA 03/15/17 0000 Signed Impressions: Service Date/Time: Wednesday, March 15, 2017 09:45 - CONCLUSION: No significant carotid stenosis Carlitos Luo MD Chest X-Ray 03/14/17 1214 Signed Impressions: Service Date/Time: Tuesday, March 14, 2017 12:50 - CONCLUSION: No acute disease. Jerson Mayfield MD Cervical Spine CT 03/14/17 0000 Signed Impressions: Service Date/Time: Tuesday, March 14, 2017 12:51 - CONCLUSION: 1. Grade 1 anterolisthesis of C4 on C5 and C7 on T1, likely degenerative given extensive multilevel facet arthropathy. Consider flexion-extension views if there is clinical concern regarding ligamentous instability. 2. Otherwise, no acute fracture. Garry Barrios MD Carotid Artery Ultrasound 03/14/17 0000 Signed Impressions: Service Date/Time: Tuesday, March 14, 2017 14:38 - CONCLUSION: 1. Potentially significant stenosis on the right 50-70%%.CT angiography of the cervicobrachial arch and carotid arteries is recommended for further evaluation if clinically indicated. Cezar Siddiqui MD Objective Remarks GENERAL: Awake, alert, elderly, frail female who is lying in bed HEAD: Old bruise on the behind right ear, small hematoma of the occipital scalp region EYES: EOMI. No scleral icterus. NECK: Trachea midline. No JVD. No carotid bruit appreciated CARDIOVASCULAR: Regular rate and rhythm. No murmur appreciated. RESPIRATORY: Clear through out. Breath sounds equal bilaterally. GASTROINTESTINAL: Abdomen soft, non-tender, nondistended. Hepatic and splenic margins not palpable. MUSCULOSKELETAL: No obvious deformities. No clubbing. No cyanosis. No edema. NEURO: Patient is alert awake, moves all extremities equally, follows commands. No focal deficits. Procedures none A/P Problem List: (1) TBI (traumatic brain injury) ICD Codes: S06.9X9A - Unspecified intracranial injury with loss of consciousness of unspecified duration, initial encounter Plan: TBI with bifrontal left more than right intraparenchymal hemorrhage with edema and mild mass effect Small traumatic subarachnoid hemorrhage left frontal region New mild IVH Fall Head ache - CT of the head follow up 03/15 shows stable intraparenchymal hemorrhage, new layering intraventricular hemorrhage in the posterior horn of left lateral ventricle - Repeat CT head due to worsening headache. CTA head and neck essentially negative for significant stenosis or aneurysm - Dr. Knight following, recommends no surgical intervention or ventricular drain planned unless acute change in clinical status- and has cleared for DC to SNF - [facility] for seizure prophylaxis at least for 7 days - Keep sodium >145, avoid hypoxia hypercarbia - Target systolic blood pressure less than 150 - PT evaluated the patient is recommending rehab at time of DC NSVT - Patient did have 12 beat run of NSVT- per patient and RN this was asymptomatic - cardiology consulted - 2 D echocardiogram 03/15/17 showed EF of 55-60%, normal left ventricular size - BMP and Mag ordered and pending - Metoprolol 25 mg BID added per cardiology recommend keep her in the hospital over the weekend to monitor. Hypertension improved - DC IV fluids patient taking PO intake - DC Labetolol 200 mg PO QID due to bradycardia - Continue Nifedipine 60 mg PO BID - Continue home medication lisinopril increase to 40 mg - continue HCTZ 25 mg PO daily Acute kidney insufficiency -resolved Dehydration - Monitor renal function closely. DC Pope catheter. Creat improved - DC IV fluids - encourage PO fluid intake UTI - urine culture reveals E Coli and Gardnerella Vaginalis continue Rocephin 1 g IV every 24 hours and Flagyl 500 mg PO Q8H DVT prophylaxis SCDs. Avoid chemical DVT prophylaxis due to intracranial hemorrhage. (2) Fall ICD Codes: W19.XXXA - Unspecified fall, initial encounter Status: Acute (3) Intraparenchymal hemorrhage of brain ICD Codes: I61.9 - Nontraumatic intracerebral hemorrhage, unspecified Status: Acute (4) UTI (urinary tract infection) ICD Codes: N39.0 - Urinary tract infection, site not specified (5) Acute kidney insufficiency ICD Codes: N28.9 - Disorder of kidney and ureter, unspecified (6) Dehydration ICD Codes: E86.0 - Dehydration Assessment and Plan Patient examined. Assessment and plan formulated with Diane Alejandra PA-C. I agree with the above. Problem Qualifiers (1) TBI (traumatic brain injury): Qualified Codes: S06.9X0A - Unspecified intracranial injury without loss of consciousness, initial encounter (2) Fall: Qualified Codes: W19.XXXA - Unspecified fall, initial encounter (3) UTI (urinary tract infection): Diane Alejandra Mar 18, 2017 15:59 Yazan Camarillo DO Mar 20, 2017 23:44
[2017-03-18 19:30] LABS: BICARBONATE 29.7 MEQ/L (21.0-32.0); MAGNESIUM 1.8 MG/DL (1.5-2.5); POTASSIUM 3.7 MEQ/L (3.5-5.1)
[2017-03-18] MEDS: ATORVASTATIN 10 MG TAB PO SCH (20:02)
[2017-03-19] VITALS (8 sets, daily range): BP systolic 109–148; BP diastolic 62–68; PULSE 52–69; RESP 18–20; TEMP 97.7–100.5; O2SAT 93–98
[2017-03-19] MEDS: CHLORHEXIDINE GLUCONATE 2 % 1 PACK (2 CLOTHS) TOP SCH (04:00)
[2017-03-19] MEDS: metroNIDAZOLE 500 MG TAB PO SCH ×3 (05:24→21:35)
[2017-03-19] MEDS: LEVOTHYROXINE SODIUM 100 MCG TAB PO SCH (05:24)
[2017-03-19] MEDS: ACETAMINOPHEN 325 MG TAB PO PRN ×3 (05:24→19:28)
[2017-03-19] MEDS ORDERED: MAGNESIUM SULFATE 1 GM PREMIX 100 ML IV ONE (08:30)
[2017-03-19] MEDS ORDERED: POTASSIUM CHLORIDE 20 MEQ CONTROLLED RELEASE TAB PO ONE (08:30)
[2017-03-19] MEDS: DOCUSATE SODIUM 50 MG/SENNA 8.6 MG TAB PO SCH ×3 (08:33→21:35)
[2017-03-19] MEDS: HYDROCHLOROTHIAZIDE 25 MG TAB PO SCH (08:35)
[2017-03-19] MEDS: levETIRAcetam INJ 500 MG in SODIUM CHLORIDE 0.9% INJ 100 ML IV SCH ×2 (08:36→21:00)
[2017-03-19] MEDS: METOPROLOL TARTRATE 25 MG TAB PO SCH ×2 (08:42→21:35)
[2017-03-19] MEDS: LISINOPRIL 20 MG TAB PO SCH (08:43)
[2017-03-19] MEDS: NIFEdipine 60 MG SUSTAINED RELEASE TAB PO SCH ×2 (10:31→21:34)
[2017-03-19] MEDS: cefTRIAXone INJ 1,000 MG in SODIUM CHLORIDE 0.9% INJ 100 ML IV SCH (13:54)
--- NOTE | 2017-03-19 14:53 | HHI.PR ---
Subjective Remarks Poor PO intake. Today, pt c/o ESPINOZA. Objective Vitals Vital Signs Date Time Temp Pulse Resp B/P (MAP) Pulse Ox O2 Delivery O2 Flow Rate FiO2 03/19/17 12:28 98.2 52 20 115/68 (84) 95 03/19/17 10:41 68 03/19/17 08:16 97.9 61 20 109/62 (78) 94 03/19/17 04:00 97.7 63 18 148/66 (93) 98 03/18/17 22:35 50 03/18/17 19:59 98.4 64 16 157/67 (97) 95 03/18/17 16:13 98.5 52 18 121/57 (78) 95 03/19/17 03/19/17 03/20/17 15:00 23:00 07:00 Intake Total 720 ml Balance 720 ml Intake Oral 720 ml # Voids 2 # Bowel Movements 1 Result Diagram: 03/17/17 0806 03/18/17 1818 Imaging Last Impressions Head CT 03/16/17 0927 Signed Impressions: Service Date/Time: Thursday, March 16, 2017 09:30 - CONCLUSION: 1. Stable left frontal contusion without evidence of acute hemorrhage Cezar Siddiqui MD Head CTA 03/15/17 0753 Signed Impressions: Service Date/Time: Wednesday, March 15, 2017 09:45 - CONCLUSION: No aneurysm or high-grade stenosis. Jerson Mayfield MD Neck CTA 03/15/17 0000 Signed Impressions: Service Date/Time: Wednesday, March 15, 2017 09:45 - CONCLUSION: No significant carotid stenosis Carlitos Luo MD Chest X-Ray 03/14/17 1214 Signed Impressions: Service Date/Time: Tuesday, March 14, 2017 12:50 - CONCLUSION: No acute disease. Jerson Mayfield MD Cervical Spine CT 03/14/17 0000 Signed Impressions: Service Date/Time: Tuesday, March 14, 2017 12:51 - CONCLUSION: 1. Grade 1 anterolisthesis of C4 on C5 and C7 on T1, likely degenerative given extensive multilevel facet arthropathy. Consider flexion-extension views if there is clinical concern regarding ligamentous instability. 2. Otherwise, no acute fracture. Garry Barrios MD Carotid Artery Ultrasound 03/14/17 0000 Signed Impressions: Service Date/Time: Tuesday, March 14, 2017 14:38 - CONCLUSION: 1. Potentially significant stenosis on the right 50-70%%.CT angiography of the cervicobrachial arch and carotid arteries is recommended for further evaluation if clinically indicated. Cezar Siddiqui MD Objective Remarks GENERAL: Awake, alert, elderly, frail female who is lying in bed HEAD: Old bruise on the behind right ear, small hematoma of the occipital scalp region EYES: EOMI. No scleral icterus. NECK: Trachea midline. No JVD. No carotid bruit appreciated CARDIOVASCULAR: Regular rate and rhythm. No murmur appreciated. RESPIRATORY: Clear through out. Breath sounds equal bilaterally. GASTROINTESTINAL: Abdomen soft, non-tender, nondistended. Hepatic and splenic margins not palpable. MUSCULOSKELETAL: No obvious deformities. No clubbing. No cyanosis. No edema. NEURO: Patient is alert awake, moves all extremities equally, follows commands. No focal deficits. Procedures none A/P Problem List: (1) TBI (traumatic brain injury) ICD Codes: S06.9X9A - Unspecified intracranial injury with loss of consciousness of unspecified duration, initial encounter Plan: TBI with bifrontal left more than right intraparenchymal hemorrhage with edema and mild mass effect Small traumatic subarachnoid hemorrhage left frontal region New mild IVH Fall Head ache - CT of the head follow up 03/15 shows stable intraparenchymal hemorrhage, new layering intraventricular hemorrhage in the posterior horn of left lateral ventricle - Repeat CT head due to worsening headache. CTA head and neck essentially negative for significant stenosis or aneurysm - Dr. Knight following, recommends no surgical intervention or ventricular drain planned unless acute change in clinical status- and has cleared for DC to SNF - [facility] for seizure prophylaxis at least for 7 days - Keep sodium >145, avoid hypoxia hypercarbia - Target systolic blood pressure less than 150 - PT evaluated the patient is recommending rehab at time of DC - ESPINOZA today, tylenol prn - anticipate d/c to SNF in next 1-2 days NSVT - Patient did have 12 beat run of NSVT- per patient and RN this was asymptomatic - cardiology consulted - 2 D echocardiogram 03/15/17 showed EF of 55-60%, normal left ventricular size - BMP and Mag ordered and pending - Metoprolol 25 mg BID - doing well on telemetry Hypertension improved - DC IV fluids patient taking PO intake - DC Labetolol 200 mg PO QID due to bradycardia - Continue Nifedipine 60 mg PO BID - Continue home medication lisinopril increase to 40 mg - continue HCTZ 25 mg PO daily Acute kidney insufficiency -resolved Dehydration - Monitor renal function closely. DC Pope catheter. Creat improved - DC IV fluids - encourage PO fluid intake UTI - urine culture reveals E Coli and Gardnerella Vaginalis continue Rocephin 1 g IV every 24 hours and Flagyl 500 mg PO Q8H DVT prophylaxis SCDs. Avoid chemical DVT prophylaxis due to intracranial hemorrhage. (2) Fall ICD Codes: W19.XXXA - Unspecified fall, initial encounter Status: Acute (3) Intraparenchymal hemorrhage of brain ICD Codes: I61.9 - Nontraumatic intracerebral hemorrhage, unspecified Status: Acute (4) UTI (urinary tract infection) ICD Codes: N39.0 - Urinary tract infection, site not specified (5) Acute kidney insufficiency ICD Codes: N28.9 - Disorder of kidney and ureter, unspecified (6) Dehydration ICD Codes: E86.0 - Dehydration Problem Qualifiers (1) TBI (traumatic brain injury): Qualified Codes: S06.9X0A - Unspecified intracranial injury without loss of consciousness, initial encounter (2) Fall: Qualified Codes: W19.XXXA - Unspecified fall, initial encounter (3) UTI (urinary tract infection): Yazan Camarillo DO Mar 19, 2017 14:53
[2017-03-19] MEDS ORDERED: MIRTAZAPINE 15 MG TAB PO SCH (21:00)
[2017-03-19] MEDS: ONDANSETRON ODT 4 MG TAB PO PRN (21:36)
[2017-03-19] MEDS: ATORVASTATIN 10 MG TAB PO SCH (21:36)
[2017-03-20] VITALS (8 sets, daily range): BP systolic 104–160; BP diastolic 55–70; PULSE 61–91; RESP 18–20; TEMP 98.6–102.2; O2SAT 93–96
[2017-03-20] MEDS: ACETAMINOPHEN 325 MG TAB PO PRN ×3 (00:33→14:08)
[2017-03-20] MEDS: CHLORHEXIDINE GLUCONATE 2 % 1 PACK (2 CLOTHS) TOP SCH (04:00)
[2017-03-20] MEDS: metroNIDAZOLE 500 MG TAB PO SCH ×2 (06:16→14:07)
[2017-03-20] MEDS: LEVOTHYROXINE SODIUM 100 MCG TAB PO SCH (06:16)
--- NOTE | 2017-03-20 08:06 | RADRPT ---
EXAM DATE/TIME: 03/20/2017 07:50 [facility] COMPARISON: CHEST PA & LAT, March 14, 2017, 12:50. INDICATIONS : Fever. MEDICAL HISTORY : Cardiovascular disease. Aneurysm, abdominal. SURGICAL HISTORY : Hysterectomy. Cardiac stent. ENCOUNTER: Subsequent ACUITY: 1 week PAIN SCORE: 0/10 LOCATION: Bilateral chest FINDINGS: PA lateral views of the chest demonstrates stable mild cardiomegaly with extensive atherosclerosis. S table diffuse prominence of the interstitium without evidence of focal airspace disease. No evidence of pneumothorax. Osseous structures demonstrate a right shoulder prosthesis and degenerative changes of the left shoulder. Partially visualized stent within the abdominal aorta. CONCLUSION: No evidence of acute cardiopulmonary disease. Becca Levin MD on March 20, 2017 at 8:03 Board Certified Radiologist. This report was verified electronically.
[2017-03-20 09:17] LABS: AUTOMATED NEUTROPHIL # 7.6 TH/MM3 (1.8-7.7); BASOPHIL % 0.2 % (0.0-2.0); EOSINOPHIL # 0.1 TH/MM3 (0-0.4); EOSINOPHIL % 0.9 % (0.0-4.0); HEMATOCRIT 38.6 % (35.0-46.0); HEMO FLAGS DIFF FINAL; LYMPH % 5.4 % (9.0-44.0); LYMPHOCYTE # 0.5 TH/MM3 (1.0-4.8); MEAN CELL VOLUME 95.3 FL (80.0-100.0); MEAN CORPUSCULAR HEMOGLOBIN 31.2 PG (27.0-34.0); MEAN CORPUSCULAR HGB CONC 32.7 % (32.0-36.0); MONO % 5.7 % (0.0-8.0); NEUT % 87.8 % (16.0-70.0); PLATELET COUNT 190 TH/MM3 (150-450); RED BLOOD COUNT 4.05 MIL/MM3 (4.00-5.30); RED CELL DISTRIBUTION WIDTH 14.6 % (11.6-17.2); WHITE BLOOD COUNT 8.7 TH/MM3 (4.0-11.0)
[2017-03-20 09:30] LABS: MAGNESIUM 1.8 MG/DL (1.5-2.5)
[2017-03-20] MEDS: NIFEdipine 60 MG SUSTAINED RELEASE TAB PO SCH (09:31)
[2017-03-20] MEDS: LISINOPRIL 20 MG TAB PO SCH (09:32)
[2017-03-20] MEDS: METOPROLOL TARTRATE 25 MG TAB PO SCH (09:32)
[2017-03-20] MEDS: DOCUSATE SODIUM 50 MG/SENNA 8.6 MG TAB PO SCH (09:32)
[2017-03-20] MEDS: HYDROCHLOROTHIAZIDE 25 MG TAB PO SCH (09:33)
[2017-03-20] MEDS: levETIRAcetam INJ 500 MG in SODIUM CHLORIDE 0.9% INJ 100 ML IV SCH (09:34)
[2017-03-20] MEDS: cefTRIAXone INJ 1,000 MG in SODIUM CHLORIDE 0.9% INJ 100 ML IV SCH (14:08)
[2017-03-20 14:31] LABS: BLOOD, URINE NEG (NEG); COMMENT (UR) CULT NOT INDICATED; GLUCOSE,URINE NEG (NEG); HYALINE CAST, URINE 1 /lpf (RARE); KETONE, URINE NEG (NEG); MUCUS URINE FEW /lpf (OCC); NITRITE,URINE NEG (NEG); SQUAMOUS EPITHELIAL CELL URINE 1 /hpf (0-5); URINE COLOR YELLOW (YELLW/STRAW)
[2017-03-20 14:32] LABS: CULTURE IF INDICATED CULT NOT INDICATED
--- NOTE | 2017-03-20 16:40 | HHI.PR ---
Subjective Remarks Pt has fever. Pt is less alert today. Objective Vitals Vital Signs Date Time Temp Pulse Resp B/P (MAP) Pulse Ox O2 Delivery O2 Flow Rate FiO2 03/20/17 16:17 102.2 91 18 160/70 (100) 96 03/20/17 12:10 98.7 62 20 116/56 (76) 93 03/20/17 09:49 61 03/20/17 08:19 98.6 63 20 104/55 (71) 95 03/20/17 06:15 99.3 03/20/17 04:58 100.1 69 20 134/62 (86) 93 03/20/17 01:50 99.2 03/20/17 01:05 101.7 89 20 146/63 (90) 93 03/19/17 21:55 100.5 03/19/17 20:40 100.5 69 18 127/65 (85) 95 03/19/17 20:00 64 03/20/17 03/20/17 03/21/17 15:00 23:00 07:00 Intake Total 120 ml Balance 120 ml Intake Oral 120 ml # Voids 1 Result Diagram: 03/20/17 0852 03/20/17 0852 Imaging Last Impressions Head CT 03/16/17 0927 Signed Impressions: Service Date/Time: Thursday, March 16, 2017 09:30 - CONCLUSION: 1. Stable left frontal contusion without evidence of acute hemorrhage Cezar Siddiqui MD Head CTA 03/15/17 0753 Signed Impressions: Service Date/Time: Wednesday, March 15, 2017 09:45 - CONCLUSION: No aneurysm or high-grade stenosis. Jerson Mayfield MD Neck CTA 03/15/17 0000 Signed Impressions: Service Date/Time: Wednesday, March 15, 2017 09:45 - CONCLUSION: No significant carotid stenosis Carlitos Luo MD Chest X-Ray 03/14/17 1214 Signed Impressions: Service Date/Time: Tuesday, March 14, 2017 12:50 - CONCLUSION: No acute disease. Jerson Mayfield MD Cervical Spine CT 03/14/17 0000 Signed Impressions: Service Date/Time: Tuesday, March 14, 2017 12:51 - CONCLUSION: 1. Grade 1 anterolisthesis of C4 on C5 and C7 on T1, likely degenerative given extensive multilevel facet arthropathy. Consider flexion-extension views if there is clinical concern regarding ligamentous instability. 2. Otherwise, no acute fracture. Garry Barrios MD Carotid Artery Ultrasound 03/14/17 0000 Signed Impressions: Service Date/Time: Tuesday, March 14, 2017 14:38 - CONCLUSION: 1. Potentially significant stenosis on the right 50-70%%.CT angiography of the cervicobrachial arch and carotid arteries is recommended for further evaluation if clinically indicated. Cezar Siddiqui MD Objective Remarks GENERAL: Awake, alert, elderly, frail female who is lying in bed HEAD: Old bruise on the behind right ear, small hematoma of the occipital scalp region EYES: EOMI. No scleral icterus. NECK: Trachea midline. No JVD. No carotid bruit appreciated CARDIOVASCULAR: Regular rate and rhythm. No murmur appreciated. RESPIRATORY: Clear through out. Breath sounds equal bilaterally. GASTROINTESTINAL: Abdomen soft, non-tender, nondistended. Hepatic and splenic margins not palpable. MUSCULOSKELETAL: No obvious deformities. No clubbing. No cyanosis. No edema. NEURO: Patient is alert awake, moves all extremities equally, follows commands. No focal deficits. Procedures none A/P Problem List: (1) TBI (traumatic brain injury) ICD Codes: S06.9X9A - Unspecified intracranial injury with loss of consciousness of unspecified duration, initial encounter Plan: TBI with bifrontal left more than right intraparenchymal hemorrhage with edema and mild mass effect Small traumatic subarachnoid hemorrhage left frontal region New mild IVH Fall Head ache - CT of the head follow up 03/15 shows stable intraparenchymal hemorrhage, new layering intraventricular hemorrhage in the posterior horn of left lateral ventricle - Repeat CT head due to worsening headache. CTA head and neck essentially negative for significant stenosis or aneurysm - Dr. Knight following, recommends no surgical intervention or ventricular drain planned unless acute change in clinical status- and has cleared for DC to SNF - [facility] for seizure prophylaxis at least for 7 days - Keep sodium >145, avoid hypoxia hypercarbia - Target systolic blood pressure less than 150 - PT evaluated the patient is recommending rehab at time of DC - ESPINOZA today, tylenol prn - anticipate d/c to SNF in next 1-2 days NSVT - Patient did have 12 beat run of NSVT- per patient and RN this was asymptomatic - cardiology consulted - 2 D echocardiogram 03/15/17 showed EF of 55-60%, normal left ventricular size - BMP and Mag ordered and pending - Metoprolol 25 mg BID - doing well on telemetry Hypertension improved - DC IV fluids patient taking PO intake - DC Labetolol 200 mg PO QID due to bradycardia - Continue Nifedipine 60 mg PO BID - Continue home medication lisinopril increase to 40 mg - continue HCTZ 25 mg PO daily Acute kidney insufficiency -resolved Dehydration - Monitor renal function closely. DC Pope catheter. Creat improved - DC IV fluids - encourage PO fluid intake UTI - urine culture reveals E Coli and Gardnerella Vaginalis continue Rocephin 1 g IV every 24 hours and Flagyl 500 mg PO Q8H DVT prophylaxis SCDs. Avoid chemical DVT prophylaxis due to intracranial hemorrhage. 03/20/17 - Pt likely aspirated overnight - coarse breath sounds - fever - Pt less alert today, but able to answer questions appropriately - case d/w pt's son by phone, POA - Son requests hospice - Care changed to symptom/pain control - code status changed to DNR - morphin prn pain - ativan prn anxiety (2) Fall ICD Codes: W19.XXXA - Unspecified fall, initial encounter Status: Acute (3) Intraparenchymal hemorrhage of brain ICD Codes: I61.9 - Nontraumatic intracerebral hemorrhage, unspecified Status: Acute (4) UTI (urinary tract infection) ICD Codes: N39.0 - Urinary tract infection, site not specified (5) Acute kidney insufficiency ICD Codes: N28.9 - Disorder of kidney and ureter, unspecified (6) Dehydration ICD Codes: E86.0 - Dehydration Problem Qualifiers (1) TBI (traumatic brain injury): Qualified Codes: S06.9X0A - Unspecified intracranial injury without loss of consciousness, initial encounter (2) Fall: Qualified Codes: W19.XXXA - Unspecified fall, initial encounter (3) UTI (urinary tract infection): Yazan Camarillo DO Mar 20, 2017 16:40
[2017-03-20] MEDS ORDERED: MORPHINE SULFATE 4 MG/ML INJ IV PUSH PRN (17:00)
[2017-03-20] MEDS ORDERED: LORazepam 2 MG/ML VIAL IV PUSH PRN (18:00)
--- NOTE | 2017-03-21 15:55 | HHI.DS ---
Discharge Summary Admission Date Mar 14, 2017 at 14:19 Discharge Date: Mar 21, 2017 Admitting Diagnosis intracranial bleed, fall (1) TBI (traumatic brain injury) Diagnosis: Principal ICD Codes: S06.9X9A - Unspecified intracranial injury with loss of consciousness of unspecified duration, initial encounter (2) Fall Diagnosis: Principal ICD Codes: W19.XXXA - Unspecified fall, initial encounter Status: Acute (3) Intraparenchymal hemorrhage of brain Diagnosis: Principal ICD Codes: I61.9 - Nontraumatic intracerebral hemorrhage, unspecified Status: Acute (4) UTI (urinary tract infection) Diagnosis: Principal ICD Codes: N39.0 - Urinary tract infection, site not specified (5) Acute kidney insufficiency Diagnosis: Principal ICD Codes: N28.9 - Disorder of kidney and ureter, unspecified (6) Dehydration Diagnosis: Principal ICD Codes: E86.0 - Dehydration Consultants Dr. Carlitos Knight Procedures none Brief History This is an 86-year-old female with history of CAD, PAD, history of AAA repair in 2008, dyslipidemia, hypothyroidism, hypertension who was brought to emergency room on 03/14/17 with history of fall and head injury. Patient had been weak and confused for past few days as per her friend and [employer], who was taking her to PCP when she noticed bruising on the right posterior occipital region. Patient did not recall falling and hitting her head. The PCP noticed that patient had a hematoma on the back of her head and bruising behind her right ear, so patient was sent to emergency department for further evaluation. CT of head in ER showed intraparenchymal hemorrhage in the left inferior frontal region measuring 2.2 x 1.5 cm, with slight surrounding edema and slight mass effect on the frontal horn of the left lateral ventricle. A small amount of subarachnoid hemorrhage is suspected in the left frontal region , also a small intraparenchymal hemorrhage in the right frontal region. I evaluated the patient in the emergency department. She does not recall the fall. Denied chest pain or palpitation. Complains of occasional dizziness. UA shows evidence evidence of UTI which is probably the recent patient was confused and had fall. BUN and creatinine consistent with dehydration. 1 L normal saline bolus followed by maintenance ordered and IV Rocephin started CBC/BMP: 03/20/17 0852 03/20/17 0852 Significant Findings Laboratory Tests Test 03/18/17 18:18 10/1/17 08:52 03/20/17 13:30 Estimat Glomerular Filtration Rate 61 ML/MIN (>89) 45 ML/MIN (>89) Neutrophils (%) (Auto) 87.8 % (16.0-70.0) Lymphocytes (%) (Auto) 5.4 % (9.0-44.0) Lymphocytes # (Auto) 0.5 TH/MM3 (1.0-4.8) Creatinine 1.14 MG/DL (0.50-1.00) Sodium Level 135 MEQ/L (136-145) Urine Leukocyte Esterase TRACE (NEG) Urine Mucus FEW /lpf (OCC) Imaging Last Impressions Chest X-Ray 03/20/17 0000 Signed Impressions: Service Date/Time: Monday, March 20, 2017 07:50 - CONCLUSION: No evidence of acute cardiopulmonary disease. Becca Levin MD Head CT 03/16/17 0927 Signed Impressions: Service Date/Time: Thursday, March 16, 2017 09:30 - CONCLUSION: 1. Stable left frontal contusion without evidence of acute hemorrhage Cezar Siddiqui MD Head CTA 03/15/17 0753 Signed Impressions: Service Date/Time: Wednesday, March 15, 2017 09:45 - CONCLUSION: No aneurysm or high-grade stenosis. Jerson Mayfield MD Neck CTA 03/15/17 0000 Signed Impressions: Service Date/Time: Wednesday, March 15, 2017 09:45 - CONCLUSION: No significant carotid stenosis Carlitos Luo MD Cervical Spine CT 03/14/17 0000 Signed Impressions: Service Date/Time: Tuesday, March 14, 2017 12:51 - CONCLUSION: 1. Grade 1 anterolisthesis of C4 on C5 and C7 on T1, likely degenerative given extensive multilevel facet arthropathy. Consider flexion-extension views if there is clinical concern regarding ligamentous instability. 2. Otherwise, no acute fracture. Garry Barrios MD Carotid Artery Ultrasound 03/14/17 0000 Signed Impressions: Service Date/Time: Tuesday, March 14, 2017 14:38 - CONCLUSION: 1. Potentially significant stenosis on the right 50-70%%.CT angiography of the cervicobrachial arch and carotid arteries is recommended for further evaluation if clinically indicated. Cezar Siddiqui MD PE at Discharge GENERAL: Awake, alert, elderly, frail female who is lying in bed- deteriorating CARDIOVASCULAR: Regular rate and rhythm. No murmur appreciated. RESPIRATORY: Clear through out. Breath sounds equal bilaterally. GASTROINTESTINAL: Abdomen soft, non-tender, nondistended. Hepatic and splenic margins not palpable. MUSCULOSKELETAL: No obvious deformities. No clubbing. No cyanosis. No edema. NEURO: Patient is drowsy, moves all extremities equally, follows commands. No focal deficits. Hospital Course TBI with bifrontal left more than right intraparenchymal hemorrhage with edema and mild mass effect Small traumatic subarachnoid hemorrhage left frontal region New mild IVH Fall Head ache - CT of the head follow up 03/15 shows stable intraparenchymal hemorrhage, new layering intraventricular hemorrhage in the posterior horn of left lateral ventricle - Repeat CT head due to worsening headache. CTA head and neck essentially negative for significant stenosis or aneurysm - Dr. Knight following, recommends no surgical intervention or ventricular drain planned unless acute change in clinical status- and has cleared for DC to [facility] for seizure prophylaxis at least for 7 days - Keep sodium >145, avoid hypoxia hypercarbia - Target systolic blood pressure less than 150 - PT evaluated the patient is recommending rehab at time of DC NSVT - Patient did have 12 beat run of NSVT- per patient and RN this was asymptomatic - cardiology consulted - 2 D echocardiogram 03/15/17 showed EF of 55-60%, normal left ventricular size - BMP and Mag ordered and pending - Metoprolol 25 mg BID - doing well on telemetry Hypertension improved - DC IV fluids patient taking PO intake - DC Labetolol 200 mg PO QID due to bradycardia - Continue Nifedipine 60 mg PO BID - Continue home medication lisinopril increase to 40 mg - continue HCTZ 25 mg PO daily Acute kidney insufficiency -resolved Dehydration - Monitor renal function closely. DC Pope catheter. Creat improved - DC IV fluids - encourage PO fluid intake UTI - urine culture reveals E Coli and Gardnerella Vaginalis continue Rocephin 1 g IV every 24 hours and Flagyl 500 mg PO Q8H DVT prophylaxis SCDs. Avoid chemical DVT prophylaxis due to intracranial hemorrhage. 03/20/17 - Pt likely aspirated overnight - coarse breath sounds - fever - Pt less alert today, but able to answer questions appropriately - Dr. Camarillo discussed the case with pt's son by phone, POA - Son requests hospice - Care changed to symptom/pain control - code status changed to DNR - morphin prn pain - ativan prn anxiety Pt Condition on Discharge: Deteriorating Discharge Disposition: Hospice/Med Facility Discharge Instructions DIET: Follow Instructions for: As Tolerated, No Restrictions Additional Diet Instructions: Activities you can perform: See Additionl Instruction, Sitz Bath Other Activity Instructions: New Medications: Hydrochlorothiazide (Hydrochlorothiazide) 25 Mg Tab 25 MG PO DAILY for blood pressure, #30 TAB 0 Refills Lisinopril (Lisinopril) 20 Mg Tab 40 MG PO DAILY for blood pressure, #30 TAB 0 Refills Continued Medications: Alendronate (Alendronate) 70 Mg Tab 70 MG PO Q7D for Osteporosis Treatment, #4 TAB 0 Refills Atorvastatin (Lipitor) 10 Mg Tab 10 MG PO HS for Cholesterol Management, #30 TAB 0 Refills Cholecalciferol (Vitamin D3) 2,000 Unit Cap 2000 UNITS PO DAILY for Nutritional Supplement, #56 CAP 0 Refills Clonazepam (Clonazepam) 0.5 Mg Tab 0.5 MG PO BID, #60 TAB 0 Refills Cyanocobalamin (Vitamin B-12) 500 Mcg Tab 500 MCG PO DAILY for Nutritional Supplement, #1 BOTTLE 0 Refills Fish Oil-Cholecalciferol (Fish Oil + D3) 1,200-1,000 Mg-Unit Cap 1 CAP PO DAILY for Nutritional Supplement, #30 CAP 0 Refills Levothyroxine (Synthroid) 100 Mcg Tab 100 MCG PO DAILY for Thyroid, #30 TAB 0 Refills Multiple Vitamins W/ Minerals (Centrum Specialist Heart) 3 Mg-200 Mcg-400 Mg Tab Nifedipine ER 24 HR (Nifedipine ER 24 HR) 60 Mg Tab 60 MG PO DAILY, #30 TAB 0 Refills Nitroglycerin SL (Nitrostat SL) 0.4 Mg Subl 0.4 MG SL DIRECTED PRN for CHEST PAIN, #100 TAB.SL 0 Refills 1 tablet under the tongue as needed for chest pain. Repeat every 5 minutes for a total of 3 DOSES or call 911 if NO relief. Omeprazole (Omeprazole) 20 Mg Tab 20 MG PO DAILY, #30 TAB 0 Refills Ondansetron (Zofran) 4 Mg Tab 4 MG PO Q8HR PRN for NAUSEA OR VOMITING, TAB 0 Refills Simvastatin (Simvastatin) 40 Mg Tab 40 MG PO HS for Cholesterol Management, #30 TAB 0 Refills Discontinued Medications: Lisinopril (Lisinopril) 20 Mg Tab 20 MG PO DAILY, #30 TAB 0 Refills Naproxen Sodium (Aleve Arthritis) 220 Mg Tab 220 MG PO BID, TAB Additional Information further meds per hospice Patient examined. Assessment and plan formulated with Diane Alejandra PA-C. I agree with the above. Diane Alejandra Mar 21, 2017 15:54 Yazan Camarillo DO Mar 22, 2017 17:44
== END 2017-03-20 20:45 | disposition hospice, inpatient (51) | DRG 85 ==
LOC: NEPC 11:56 → NEDA 14:19 → N03A 16:01 → N05A 03-16 22:57
PROVIDERS: ADMIT Hospitalist; ATTEND Hospitalist
DX: S06.6X0A Traumatic subarachnoid hemorrhage without loss of consciousness, initial encounter (principal); S06.370A Contusion, laceration, and hemorrhage of cerebellum without loss of consciousness, initial encounter; N17.9 Acute kidney failure, unspecified; E86.0 Dehydration; N39.0 Urinary tract infection, site not specified; I65.21 Occlusion and stenosis of right carotid artery; I47.1 Supraventricular tachycardia; E78.5 Hyperlipidemia, unspecified; I73.9 Peripheral vascular disease, unspecified; E03.9 Hypothyroidism, unspecified; I25.10 Atherosclerotic heart disease of native coronary artery without angina pectoris; M43.12 Spondylolisthesis, cervical region; W19.XXXA Unspecified fall, initial encounter; K21.9 Gastro-esophageal reflux disease without esophagitis; Z66 Do not resuscitate; F41.9 Anxiety disorder, unspecified; M06.9 Rheumatoid arthritis, unspecified; I12.9 Hypertensive chronic kidney disease with stage 1 through stage 4 chronic kidney disease, or unspecified chronic kidney disease; N18.3 Chronic kidney disease, stage 3 (moderate); Z79.82 Long term (current) use of aspirin
CPT/HCPCS: 70450; 70496; 70498; 71020; 72125; 80048; 80053; 81001; 82550; 82552; 82607; 83690; 83735; 84443; 84484; 85025; 85610; 85730; 87040; 87077; 87086; 87186; 90686; 93005; 93306; 93880; 94150; 94640; 94667; 94668; J0360; J0696; J1953; J3475; J7030; Q2038; Q9967